=== PATIENT | female | born 1990 | race Hispanic/Latino ===

== ENCOUNTER 2018-01-15 22:25 | Emergency (ER) | payer SELFPAY ==
[2018-01-15 23:05] LABS: Urine Blood 2+ (NEG); Urine Glucose NEGATIVE (NEG); Urine Protein NEGATIVE (NEG)
[2018-01-15 23:39] LABS: Absolute Lymphocytes (CBC) 2.6 K/uL (0.7-4.9); Absolute Monocytes 0.6 K/uL (0.1-1.3); Absolute Neutrophil 7.2 K/uL (1.8-8.0); Basophils % 0.3 % (0-1.3); Eosinophils % 3.8 % (0-4.4); Hematocrit 39.9 % (36.0-45.0); Lymphocytes % 24.1 % (15.3-44.8); MCH 30.4 pg (27.0-35.0); MCV 86.2 fL (80-100); MPV 7.7 fL (7.6-11.3); Monocytes % 5.2 % (3.3-12.3); RBC Red Blood Cell Count 4.63 M/uL (3.86-4.86)
[2018-01-15 23:56] LABS: BUN Blood Urea Nitrogen 13 mg/dL (7-18); Bicarbonate 21 mmol/L (21-32); Glucose Level 113 mg/dL (74-106); Potassium 3.3 mmol/L (3.5-5.1); Sodium Level 143 mmol/L (136-145)
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
[2018-01-16] MEDS ORDERED: POTASSIUM 25 MEQ EFFERV TAB ONE (02:12)
[2018-01-16] MEDS ORDERED: CALCIUM CARBONATE CHEW 500MG TAB ONE (02:20)
[2018-01-16 02:42] VITALS: TEMP 98.5
[2018-01-16 02:45] VITALS: BP 119/78; O2SAT 100
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
== END 2018-01-16 02:35 | disposition home or self-care (01) ==
LOC: MERGE 22:25 → ER 22:25
DX: S01.111A Laceration without foreign body of right eyelid and periocular area, initial encounter (principal); F10.129 Alcohol abuse with intoxication, unspecified
CPT/HCPCS: 36415; 70450; 71250; 72125; 80048; 80320; 81003; 81025; 85025; 86850; 86900; 86901; 99284

== ENCOUNTER 2018-07-29 20:38 | Emergency (ER) | payer SELFPAY ==
--- NOTE | 2018-07-29 22:31 | RAD REPORT ---
EXAM DESCRIPTION: US[facility] [employer] Ltd07/29/2018 10:22 pm CLINICAL HISTORY: left leg pain and swelling. COMPARISON: None. FINDINGS: Left common femoral, superficial femoral, popliteal and posterior tibial veins are compre ssible and demonstrate augmentation. Doppler demonstrates good flow. IMPRESSION: No evidence of deep venous thrombosis involving the left lower extremity.
[2018-07-29 22:38] LABS: Absolute Lymphocytes (CBC) 3.3 K/uL (0.7-4.9); Absolute Neutrophil 6.6 K/uL (1.8-8.0); Basophils % 0.3 % (0-1.3); Eosinophils % 2.4 % (0-4.4); Hematocrit 41.2 % (36.0-45.0); Lymphocytes % 29.2 % (15.3-44.8); MPV 7.8 fL (7.6-11.3); Monocytes % 8.8 % (3.3-12.3); RBC Red Blood Cell Count 4.85 M/uL (3.86-4.86)
[2018-07-29 22:55] LABS: ALT/SGPT 45 U/L (12-78); AST/SGOT 24 U/L (15-37); Alkaline Phosphatase 74 U/L (45-117); BUN Blood Urea Nitrogen 14 mg/dL (7-18); Bicarbonate 27 mmol/L (21-32); Bilirubin Total 0.5 mg/dL (0.2-1.0); Glucose Level 89 mg/dL (74-106); Potassium 3.6 mmol/L (3.5-5.1); Protein, Total 7.7 g/dL (6.4-8.2); Sodium Level 141 mmol/L (136-145)
[2018-07-29] MEDS ORDERED: CLINDAMYCIN 600MG/D5W 600 MG/50 ML BAG IV ONE (23:33)
[2018-07-29 23:38] LABS: Urine Blood TRACE (NEG); Urine Glucose NEGATIVE (NEG); Urine Protein 1+ (NEG); Urine Specific Gravity 1.025 (1.005-1.030)
--- NOTE | 2018-07-29 23:39 | EDPHYS ---
Physician Documentation [facility] Name: Siria Godinez Age: 27 yrs Sex: Female : 1990 Arrival Date: 07/29/2018 Time: 20:39 Bed 20 Private MD: ED Physician Trace Stringer HPI: 07/29 21:18 This 27 yrs old Female presents to ER via Ambulatory with complaints of Insect jmm Bite. 21:18 The patient presents with pain, that is acute, swelling. The complaints affect the jmm lateral aspect of left calf, left calf, medial aspect of left calf and left zayas. Onset: The symptoms/episode began/occurred gradually, today. This is a 27 year old female with no chronic medical conditions that presents to the ED with complaints of left lower leg swelling beginning earlier today today after going fishing. Patient was walking in salt water. Patient complaints of chills. Denies known injury. . 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 - Social history:: Smoking status: Patient uses tobacco products, denies chronic smoking, but will smoke occasionally. - Ebola Screening: : Patient negative for fever greater than or equal to 101.5 degrees Fahrenheit, and additional compatible Ebola Virus Disease symptoms Patient denies exposure to infectious person Patient denies travel to an Ebola-affected area in the 21 days before illness onset No symptoms or risks identified at this time. ROS: 21:18 Constitutional: Positive for body aches, chills. jmm 21:18 MS/extremity: Positive for erythema, swelling. 21:18 Skin: Positive for erythema, swelling. 21:18 All other systems are negative. Exam: 21:18 Constitutional: This is a well developed, well nourished patient who is awake, alert, jmm and in no acute distress. Head/Face: atraumatic. Eyes: EOMI, no conjunctival erythema appreciated ENT: Moist Mucus Membranes Neck: Trachea midline, Supple Chest/axilla: Normal chest wall appearance and motion. Cardiovascular: Regular rate and rhythm. No edema appreciated Respiratory: Normal respirations, no respiratory distress appreciated Abdomen/GI: Non distended, soft Back: Normal ROM 21:18 Skin: erythema noted to the left lower leg. 21:18 Neuro: Orientation: is normal, Mentation: is normal, Memory: is normal. 21:18 Psych: Behavior/mood is pleasant, cooperative. Vital Signs: 20:52 BP 139 / 97; Pulse 112; Resp 20; Temp 99.6(O); Pulse Ox 99% on R/A; Weight 85.28 kg; ed1 Height 5 ft. 0 in. (152.40 cm); Pain 4/10; 23:35 BP 122 / 66; Pulse 95; Resp 18; Temp 98.1; Pulse Ox 100% on R/A; wh 20:52 Body Mass Index 36.72 (85.28 kg, 152.40 cm) ed1 MDM: 21:14 Patient medically screened. [facility] 22:12 Data reviewed: vital signs, nurses notes. Counseling: I had a detailed discussion with mary the patient and/or guardian regarding: the historical points, exam findings, and any diagnostic results supporting the discharge/admit diagnosis. 07/29 21:16 Order name: CBC with Diff; Complete Time: 23:04 [facility] 07/29 21:16 Order name: CMP; Complete Time: 23:04 [facility] 07/29 21:16 Order name: Blood Culture Adult (2) [facility] 07/29 21:16 Order name: Procalcitonin; Complete Time: 23:38 [facility] 07/29 21:16 Order name: Lactate; Complete Time: 23:04 [facility] 07/29 23:18 Order name: Urine Microscopic Only; Complete Time: 23:48 [facility] 07/29 21:16 Order name: US Extremity Venous Unilateral Ltd; Complete Time: 22:34 [facility] 07/29 23:33 Order name: Urine Dipstick--Ancillary (enter results); Complete Time: 23:39 [facility] 07/29 23:33 Order name: Urine --Ancillary (enter results); Complete Time: 23:39 [facility] 07/29 23:48 Order name: Urine Culture; Complete Time: 07:52 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 Exp: 05/25/2020. Lot #: [id number]. } Route: IM; Site: right deltoid; 07/30 00:08 Follow up: Response: No adverse reaction 07/29 23:59 Drug: [place] 5 mg-325 mg 1 tabs Route: PO; 07/30 00:08 Follow up: Response: No adverse reaction Disposition: 01:57 Co-signature as Attending Physician, Trace Stringer MD. rn Disposition: 07/29/18 23:38 Discharged to Home. Impression: Cellulitis of right lower limb. - Condition is Stable. - Discharge Instructions: Cellulitis, Adult, Urinary Tract Infection, Adult. - Prescriptions for Clindamycin HCl 300 mg Oral Capsule - take 1 capsule by ORAL route every 6 hours for 10 days; 40 capsule. Bactrim DS 800- 160 mg Oral Tablet - take 1 tablet by ORAL route every 12 hours for 10 days; 20 tablet. Tylenol- Codeine #3 300-30 mg Oral Tablet - take 2 tablets by ORAL route every 6 hours As needed; 20 tablet. - Medication Reconciliation Form, Thank You Letter, Antibiotic Education, Prescription Opioid Use form. - Follow up: Emergency Department; When: As needed; Reason: Worsening of condition. Follow up: Private Physician; When: 2 - 3 days; Reason: Recheck today's complaints, Continuance of care, Re-evaluation by your physician. - Problem is new. - Symptoms have improved. Signatures: Dispatcher [employer] EDMS Lizzy Grace, FREDERICKC HARSH-James Kong PA PA jmm Nieto, Roman, MD MD rn Riggs, Erika, RN RN ed1 Thor Pettit NP FOOD AND BEVERAGE ORDER CLERK pm1 Nemo Mclain Corrections: (The following items were deleted from the chart) 00:10 07/29 23:38 07/29/2018 23:38 Discharged to Home. Impression: Cellulitis of right lower wh limb. Condition is Stable. Forms are Medication Reconciliation Form, Thank You Letter, Antibiotic Education, Prescription Opioid Use. Follow up: Emergency Department; When: As needed; Reason: Worsening of condition. Follow up: Private Physician; When: 2 - 3 days; Reason: Recheck today's complaints, Continuance of care, Re-evaluation by your physician. Problem is new. Symptoms have improved. pm1
--- NOTE | 2018-07-29 23:39 | ER ---
Nurse's Notes [facility] Name: Siria Godinez Age: 27 yrs Sex: Female : 1990 Arrival Date: 07/29/2018 Time: 20:39 Bed 20 Private MD: Diagnosis: Cellulitis of right lower limb Presentation: 07/29 20:50 Presenting complaint: Patient states: This morning I went fishing with my and I ed1 think I got bit by something and now my leg is swelling. I can't keep anything down and I have been having diarrhea. Transition of care: patient was not received from another setting of care. Onset of symptoms was July 29, 2018. Risk Assessment: Do you want to hurt yourself or someone else? Patient reports no desire to harm self or others. Initial Sepsis Screen: Does the patient meet any 2 criteria? No. Patient's initial sepsis screen is negative. Does the patient have a suspected source of infection? No. Patient's initial sepsis screen is negative. Care prior to arrival: Medication(s) given: Benadryl. 20:50 Method Of Arrival: Ambulatory ed1 20:50 Acuity: VICENTA 3 ed1 Triage Assessment: 20:52 Bite description: bite sustained to left leg by an unknown animal, animal information: ed1 vaccination(s) is unknown. General: Appears uncomfortable, Behavior is calm, cooperative. Pain: Complains of pain in left leg Pain currently is 4 out of 10 on a pain scale. at worst was 9 out of 10 on a pain scale. Quality of pain is described as throbbing. 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 - Social history:: Smoking status: Patient uses tobacco products, denies chronic smoking, but will smoke occasionally. - Ebola Screening: : Patient negative for fever greater than or equal to 101.5 degrees Fahrenheit, and additional compatible Ebola Virus Disease symptoms Patient denies exposure to infectious person Patient denies travel to an Ebola-affected area in the 21 days before illness onset No symptoms or risks identified at this time. Screenin:30 Abuse screen: Denies threats or abuse. Denies injuries from another. Nutritional aj1 screening: No deficits noted. Tuberculosis screening: No symptoms or risk factors identified. 07/30 00:09 Fall Risk None identified. Assessment: 07/29 21:30 General: Appears in no apparent distress. uncomfortable, Behavior is calm, cooperative, aj1 appropriate for age. Pain: Complains of pain in left leg. Neuro: Level of Consciousness is awake, alert, obeys commands, Oriented to person, place, time, situation. Cardiovascular: Patient's skin is warm and dry. Respiratory: Airway is patent Respiratory effort is even, unlabored, Respiratory pattern is regular, symmetrical. GI: Reports diarrhea. : No signs and/or symptoms were reported regarding the genitourinary system. EENT: No signs and/or symptoms were reported regarding the EENT system. Derm: Skin is intact, Skin is redness and swelling noted to left leg. Musculoskeletal: Circulation, motion, and sensation intact. 22:00 Reassessment: Ultrasound at bedside. aj1 22:40 Reassessment: Patient appears in no apparent distress at this time. No changes from aj1 previously documented assessment. Patient and/or family updated on plan of care and expected duration. Pain level reassessed. Patient is alert, oriented x 3, equal unlabored respirations, skin warm/dry/pink. 23:35 Reassessment: Patient appears in no apparent distress at this time. No changes from previously documented assessment. Patient and/or family updated on plan of care and expected duration. Pain level reassessed. Patient is alert, oriented x 3, equal unlabored respirations, skin warm/dry/pink. Vital Signs: 20:52 BP 139 / 97; Pulse 112; Resp 20; Temp 99.6(O); Pulse Ox 99% on R/A; Weight 85.28 kg; ed1 Height 5 ft. 0 in. (152.40 cm); Pain 4/10; 23:35 BP 122 / 66; Pulse 95; Resp 18; Temp 98.1; Pulse Ox 100% on R/A; wh 20:52 Body Mass Index 36.72 (85.28 kg, 152.40 cm) ed1 ED Course: 20:39 Patient arrived in ED. as 20:52 Triage completed. ed1 20:52 Arm band placed on left wrist. ed1 21:10 James Love PA is PHCP. jmm 21:10 Trace Stringer MD is Attending Physician. jmm 21:30 Patient has correct armband on for positive identification. Bed in low position. Call aj1 light in reach. Side rails up X 1. 21:30 No provider procedures requiring assistance completed. aj1 21:54 Monica Badillo, NAN is Primary Nurse. aj1 22:10 Ultrasound completed. Patient tolerated well. Notified ED Physician ed physician. sg3 22:13 PHCP role handed off by James Love PA pm1 22:13 Thor Pettit NP is PHCP. pm1 22:22 US Extremity Venous Unilateral Ltd In Process Unspecified. EDMS 22:27 Inserted saline lock: 22 gauge in right antecubital area, using aseptic technique. aj1 Blood collected. 22:27 Initial lab(s) drawn, by me, sent to lab. First set of blood cultures drawn by me. aj1 22:45 Report given to NAN [place]. [facility] 07/30 00:09 IV discontinued, intact, bleeding controlled, No redness/swelling at site. 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 Exp: 05/25/2020. Lot #: [id number]. } Route: IM; Site: right deltoid; 07/30 00:08 Follow up: Response: No adverse reaction 07/29 23:59 Drug: [place] 5 mg-325 mg 1 tabs Route: PO; 07/30 00:08 Follow up: Response: No adverse reaction Outcome: 07/29 23:38 Discharge ordered by . pm1 07/30 00:08 Discharged to home ambulatory, with family. Condition: good Discharge instructions given to patient, Instructed on discharge instructions, follow up and referral plans. no drinking with medication, no driving heavy equipment, medication usage, POC Cellulitis, UTI Demonstrated understanding of instructions, follow-up care, medications, POC Prescriptions given X 3. 00:10 Patient left the ED. Addendum: 08/01/2018 08:11 Addendum: Culture Results: Positive urine culture. No further action required. Bacteria a a5 sensitive to prescribed antibiotic. Signatures: Dispatcher [employer] EDMS Monica Badillo, RN RN aj1 James Love PA PA jmm Martinez, Amelia as Calderon, Audri, RN RN aa5 Danna Choi RN RN ed1 Thor Pettit, CHARLIE POOL CLEANER pm1 Nemo Mclain Beatriz Dodd sg3
[2018-07-29 23:46] LABS: Urine Bacteria >50 /HPF (<20); Urine Culture Reflex Order REFLEXED; Urine Mucus MOD /HPF (NONE SEEN); Urine RBC <5 /HPF (NONE SEEN)
[2018-07-30] MEDS ORDERED: HYDROCODONE/APAP 5/325 MG TAB ONE (00:06)
[2018-07-30] MEDS ORDERED: TETANUS & DIPHTHERIA TOX,ADULT 0.5 ML VIAL ONE (00:07)
[2018-07-30] MEDS ORDERED: SMZ./TMP. 800/160 MG TABLET ONE (00:07)
[2018-07-30 01:29] VITALS: BP 122/66; TEMP 98.1; O2SAT 100
== END 2018-07-30 00:10 | disposition home or self-care (01) ==
LOC: ER 20:38
DX: L03.116 Cellulitis of left lower limb (principal); Z88.8 Allergy status to other drugs, medicaments and biological substances
CPT/HCPCS: 36415; 80053; 81003; 81015; 81025; 83605; 84145; 85025; 87040; 87077; 87086; 87088; 87186; 90471; 93971; 96365; 99284

== ENCOUNTER 2018-10-09 06:02 | Emergency (ER) | payer OTHER, SELFPAY ==
--- OUTSIDE RECORDS SUMMARY | 2018-10-09 06:05 | XMS REPORT ---
:1990 [facility] [address] [place] [address] Dr. De La Cruz. [address] [place] [id number] Care Team Providers Name Role Phone Unavailable Unavailable Unavailable Problems This patient has no known problems. Allergies, Adverse Reactions, Alerts This patient has no known allergies or adverse reactions. Medications This patient has no known medications.
--- NOTE | 2018-10-09 06:14 | ER ---
Nurse's Notes [facility] Name: Siria Godinez Age: 28 yrs Sex: Female : 1990 Arrival Date: 10/09/2018 Time: 06:04 Bed 5 Private MD: Diagnosis: Acute contact otitis externa Presentation: 10/09 06:11 Presenting complaint: Patient states: "I have a really bad ear infection in my right jd3 ear. I normally take over the counter ear drops and Tylenol and it goes away. this time it has gotten worse and it has been about 4 days.". Transition of care: patient was not received from another setting of care. Onset of symptoms was October 09, 2018. Risk Assessment: Do you want to hurt yourself or someone else? Patient reports no desire to harm self or others. Initial Sepsis Screen: Does the patient meet any 2 criteria? No. Patient's initial sepsis screen is negative. Does the patient have a suspected source of infection? No. Patient's initial sepsis screen is negative. Care prior to arrival: None. 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 - Social history:: Smoking status: Patient/guardian denies using tobacco. - Ebola Screening: : Patient negative for fever greater than or equal to 101.5 degrees Fahrenheit, and additional compatible Ebola Virus Disease symptoms. Screenin:17 Abuse screen: Denies threats or abuse. Nutritional screening: No deficits noted. jd3 Tuberculosis screening: No symptoms or risk factors identified. Fall Risk Ambulatory Aid- None/Bed Rest/Nurse Assist (0 pts). Gait- Normal/Bed Rest/Wheelchair (0 pts) Mental Status- Oriented to own ability (0 pts). Total Lara Fall Scale indicates No Risk (0-24 pts). Assessment: 06:16 General: Appears in no apparent distress. uncomfortable, Behavior is calm, cooperative, jd3 appropriate for age. Pain: Complains of pain in right ear Quality of pain is described as aching, pressure. Neuro: Level of Consciousness is awake, alert, obeys commands, Oriented to person, place, time, situation. Cardiovascular: Capillary refill < 3 seconds Patient's skin is warm and dry. Respiratory: Airway is patent Respiratory effort is even, unlabored, Respiratory pattern is regular, symmetrical, Denies cough, shortness of breath. GI: No signs and/or symptoms were reported involving the gastrointestinal system. : No signs and/or symptoms were reported regarding the genitourinary system. EENT: Reports pain in right ear Denies decreased hearing nasal congestion. Derm: Skin is intact, Skin is dry, Skin is normal, Skin temperature is warm. Musculoskeletal: Circulation, motion, and sensation intact. Range of motion: intact in all extremities. 06:22 Reassessment: Patient appears in no apparent distress at this time. Patient and/or jd3 family updated on plan of care and expected duration. Pain level reassessed. Patient is alert, oriented x 3, equal unlabored respirations, skin warm/dry/pink. pt reported understanding of discharge instructions. even and steady gait upon discharge. Vital Signs: 06:15 BP 123 / 54; Pulse 81; Resp 15 S; Temp 98.2(O); Pulse Ox 99% on R/A; Weight 89.36 kg jd3 (R); Height 5 ft. 2 in. (157.48 cm) (R); Pain 8/10; 06:15 Body Mass Index 36.03 (89.36 kg, 157.48 cm) jd3 ED Course: 06:04 Patient arrived in ED. ds1 06:05 Patrick Vila, NAN is Primary Nurse. jd3 06:06 Rafael Peters PA is PHCP. jr8 06:06 Sergio Rivas MD is Attending Physician. jr8 06:14 Triage completed. jd3 06:16 Arm band placed on. jd3 06:18 Patient has correct armband on for positive identification. Bed in low position. Call jd3 light in reach. Side rails up X 1. 06:21 No provider procedures requiring assistance completed. Patient did not have IV access jd3 during this emergency room visit. Administered Medications: No medications were administered Outcome: 06:13 Discharge ordered by . luciano :22 Discharged to home ambulatory. jd3 06: Condition: stable 06:22 Discharge instructions given to patient, Instructed on discharge instructions, follow up and referral plans. medication usage, Demonstrated understanding of instructions, follow-up care, medications, Prescriptions given X 1. :23 Patient left the ED. jd3 Signatures: Casie Alfaro ds1 Rafael Peters PA PA jr8 Patrick Vila RN RN jd3
--- NOTE | 2018-10-09 06:15 | EDPHYS ---
Physician Documentation [facility] Name: Siria Godinez Age: 28 yrs Sex: Female : 1990 Arrival Date: 10/09/2018 Time: 06:04 Bed 5 Private MD: ED Physician Sergio Rivas HPI: 10/09 06:31 This 28 yrs old Female presents to ER via Ambulatory with complaints of Ear jr8 Pain - <8 Wks Preg. 06:31 The patient presents with pain, swelling, tenderness. The complaints affect the right jr8 ear. Onset: The symptoms/episode began/occurred acutely, 4 day(s) ago, and became worse. Modifying factors: The symptoms are alleviated by nothing, the symptoms are aggravated by touching. Associated signs and symptoms: The patient has no apparent associated signs or symptoms. Severity of symptoms: At their worst the symptoms were moderate in the emergency department the symptoms are unchanged. The patient has not experienced similar symptoms in the past. The patient has been recently seen by a physician: the patient's primary care provider, with different complaint(s), was given a prescription for antibiotics. Recently seen for UTI. Stated that she now is having ear pain that will not decrease . 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 - Social history:: Smoking status: Patient/guardian denies using tobacco. - Ebola Screening: : Patient negative for fever greater than or equal to 101.5 degrees Fahrenheit, and additional compatible Ebola Virus Disease symptoms. ROS: 06:31 Eyes: Negative for injury, pain, redness, and discharge, Neck: Negative for injury, jr8 pain, and swelling, Cardiovascular: Negative for chest pain, palpitations, and edema, Respiratory: Negative for shortness of breath, cough, wheezing, and pleuritic chest pain, Abdomen/GI: Negative for abdominal pain, nausea, vomiting, diarrhea, and constipation, Back: Negative for injury and pain, MS/Extremity: Negative for injury and deformity, Skin: Negative for injury, rash, and discoloration, Neuro: Negative for headache, weakness, numbness, tingling, and seizure. 06:31 ENT: Positive for ear pain, Negative for drainage from ear(s), tinnitus, nasal discharge, rhinorrhea, sinus congestion, sinus pain, sore throat, difficulty swallowing, difficulty handling secretions, hoarseness. Exam: 06:31 Eyes: Pupils equal round and reactive to light, extra-ocular motions intact. Lids and jr8 lashes normal. Conjunctiva and sclera are non-icteric and not injected. Cornea within normal limits. Periorbital areas with no swelling, redness, or edema. Neck: Trachea midline, no thyromegaly or masses palpated, and no cervical lymphadenopathy. Supple, full range of motion without nuchal rigidity, or vertebral point tenderness. No Meningismus. Cardiovascular: Regular rate and rhythm with a normal S1 and S2. No gallops, murmurs, or rubs. Normal PMI, no JVD. No pulse deficits. Respiratory: Lungs have equal breath sounds bilaterally, clear to auscultation and percussion. No rales, rhonchi or wheezes noted. No increased work of breathing, no retractions or nasal flaring. Abdomen/GI: Soft, non-tender, with normal bowel sounds. No distension or tympany. No guarding or rebound. No evidence of tenderness throughout. Back: No spinal tenderness. No costovertebral tenderness. Full range of motion. Skin: Warm, dry with normal turgor. Normal color with no rashes, no lesions, and no evidence of cellulitis. MS/ Extremity: Pulses equal, no cyanosis. Neurovascular intact. Full, normal range of motion. Neuro: Awake and alert, GCS 15, oriented to person, place, time, and situation. Cranial nerves II-XII grossly intact. Motor strength 5/5 in all extremities. Sensory grossly intact. Cerebellar exam normal. Normal gait. 06:31 ENT: Exam is negative for nasal discharge, sinus tenderness, enlarged tonsils, pharyngitis, dental infection, exudate, abnormal voice, External ear(s): are unremarkable, Ear canal(s): swelling, that is moderate, of the right canal, TM's: are normal, no evidence of bulging, no dullness, no erythema, no fluid levels, no hemotympanum, no rupture, normal bony landmarks, normal mobility, Mouth: Lips: moist, Oral mucosa: pink and intact, moist, Gums: pink, Tongue: is moist, Posterior pharynx: Airway: patent, erythema, is not appreciated. Vital Signs: 06:15 BP 123 / 54; Pulse 81; Resp 15 S; Temp 98.2(O); Pulse Ox 99% on R/A; Weight 89.36 kg jd3 (R); Height 5 ft. 2 in. (157.48 cm) (R); Pain 8/10; 06:15 Body Mass Index 36.03 (89.36 kg, 157.48 cm) jd3 MDM: 06:13 Patient medically screened. jr8 06:31 Data reviewed: vital signs, nurses notes, and as a result, I will discharge patient. jr8 Data interpreted: Pulse oximetry: on room air is 99 %. Interpretation: normal. Counseling: I had a detailed discussion with the patient and/or guardian regarding: the historical points, exam findings, and any diagnostic results supporting the discharge/admit diagnosis, the need for outpatient follow up, a family practitioner, to return to the emergency department if symptoms worsen or persist or if there are any questions or concerns that arise at home. Administered Medications: No medications were administered Disposition: 19:01 Co-signature as Attending Physician, Sergio Rivas MD I agree with the assessment and ps1 plan of care. Available for consultation at all times . Disposition: 10/09/18 06:13 Discharged to Home. Impression: Acute contact otitis externa. - Condition is Stable. - Discharge Instructions: Otitis Externa. - Prescriptions for Ciprodex 0.3- 0.1 % Otic Drops, Suspension - instill 4 drop by OTIC route every 12 hours for 7 days , for ears ONLY; 1 Container. - Medication Reconciliation Form, Thank You Letter, Antibiotic Education, Prescription Opioid Use form. - Follow up: Private Physician; When: 1 week; Reason: Recheck today's complaints, Continuance of care, Re-evaluation by your physician. - Problem is new. - Symptoms have improved. Signatures: Rafael Peters PA PA jr8 Patrick Vila RN RN jd3 Singer, Phillip, MD MD ps1 Corrections: (The following items were deleted from the chart) 06:23 06:13 10/09/2018 06:13 Discharged to Home. Impression: Acute contact otitis externa. jd3 Condition is Stable. Forms are Medication Reconciliation Form, Thank You Letter, Antibiotic Education, Prescription Opioid Use. Follow up: Private Physician; When: 1 week; Reason: Recheck today's complaints, Continuance of care, Re-evaluation by your physician. Problem is new. Symptoms have improved. jr8
[2018-10-09 06:38] VITALS: BP 123/54; TEMP 98.2; O2SAT 99
== END 2018-10-09 06:23 | disposition home or self-care (01) ==
LOC: ER 06:02
DX: O26.891 Other specified pregnancy related conditions, first trimester (principal); H60.531 Acute contact otitis externa, right ear; Z3A.08 8 weeks gestation of pregnancy; Z88.8 Allergy status to other drugs, medicaments and biological substances
CPT/HCPCS: 99282

== ENCOUNTER 2018-10-10 12:19 | Emergency (ER) | payer OTHER ==
--- OUTSIDE RECORDS SUMMARY | 2018-10-10 12:21 | XMS REPORT ---
:1990 [facility] Address [address] [place] [address] Dr. De La Cruz. [address] [place] [id number] Care Team Providers Name Role Phone Unavailable Unavailable Unavailable Problems This patient has no known problems. Allergies, Adverse Reactions, Alerts This patient has no known allergies or adverse reactions. Medications This patient has no known medications.
[2018-10-10] MEDS ORDERED: MEPERIDINE HCL 50 MG/ML AMP ONE (14:06)
[2018-10-10] MEDS ORDERED: PROMETHAZINE 25 MG TABLET ONE (14:06)
--- NOTE | 2018-10-10 14:53 | EDPHYS ---
Physician Documentation [facility] Name: Siria Godinez Age: 28 yrs Sex: Female : 1990 Arrival Date: 10/10/2018 Time: 12:21 Bed 11 Private MD: ED Physician Miguelito Smith HPI: 10/10 14:52 This 28 yrs old Female presents to ER via Ambulatory with complaints of Ear jr8 Pain. 14:52 The patient presents with pain, swelling, tenderness. The complaints affect the right jr8 ear. Onset: The symptoms/episode began/occurred acutely, 2 day(s) ago. Modifying factors: The symptoms are alleviated by nothing, the symptoms are aggravated by touching. Associated signs and symptoms: The patient has no apparent associated signs or symptoms. Severity of symptoms: At their worst the symptoms were moderate in the emergency department the symptoms are unchanged. The patient has not experienced similar symptoms in the past. The patient has not recently seen a physician. Patient seen in ED yesterday and diagnosed with acute otitis externa. Came back today with worsening of pain and increased swelling. Stated that the ear drops are not going in because of the swelling . [employer]: 12:27 LMP 08/31/2018 hj Historical: - Allergies: 12:26 Zofran (Hives); hj - PMHx: 12:26 None; hj - PSHx: 12:26 Appendectomy; Cholecystectomy; hj - Immunization history:: Adult Immunizations up to date. - Social history:: Smoking status: Patient/guardian denies using tobacco. - Ebola Screening: : Patient negative for fever greater than or equal to 101.5 degrees Fahrenheit, and additional compatible Ebola Virus Disease symptoms Patient denies exposure to infectious person Patient denies travel to an Ebola-affected area in the 21 days before illness onset No symptoms or risks identified at this time. ROS: 14:52 Eyes: Negative for injury, pain, redness, and discharge, Neck: Negative for injury, jr8 pain, and swelling, Cardiovascular: Negative for chest pain, palpitations, and edema, Respiratory: Negative for shortness of breath, cough, wheezing, and pleuritic chest pain, Abdomen/GI: Negative for abdominal pain, nausea, vomiting, diarrhea, and constipation, Back: Negative for injury and pain, MS/Extremity: Negative for injury and deformity, Skin: Negative for injury, rash, and discoloration, Neuro: Negative for headache, weakness, numbness, tingling, and seizure. 14:52 ENT: Positive for ear pain. Exam: 14:52 Eyes: Pupils equal round and reactive to light, extra-ocular motions intact. Lids and jr8 lashes normal. Conjunctiva and sclera are non-icteric and not injected. Cornea within normal limits. Periorbital areas with no swelling, redness, or edema. Neck: Trachea midline, no thyromegaly or masses palpated, and no cervical lymphadenopathy. Supple, full range of motion without nuchal rigidity, or vertebral point tenderness. No Meningismus. Cardiovascular: Regular rate and rhythm with a normal S1 and S2. No gallops, murmurs, or rubs. Normal PMI, no JVD. No pulse deficits. Respiratory: Lungs have equal breath sounds bilaterally, clear to auscultation and percussion. No rales, rhonchi or wheezes noted. No increased work of breathing, no retractions or nasal flaring. Abdomen/GI: Soft, non-tender, with normal bowel sounds. No distension or tympany. No guarding or rebound. No evidence of tenderness throughout. Back: No spinal tenderness. No costovertebral tenderness. Full range of motion. Skin: Warm, dry with normal turgor. Normal color with no rashes, no lesions, and no evidence of cellulitis. MS/ Extremity: Pulses equal, no cyanosis. Neurovascular intact. Full, normal range of motion. Neuro: Awake and alert, GCS 15, oriented to person, place, time, and situation. Cranial nerves II-XII grossly intact. Motor strength 5/5 in all extremities. Sensory grossly intact. Cerebellar exam normal. Normal gait. 14:52 ENT: Exam is negative for nasal discharge, sinus tenderness, enlarged tonsils, pharyngitis, dental infection, exudate, External ear(s): are unremarkable, no abrasion, no avulsion, no erythema, no laceration, no puncture, no cellulitis, no abscess, no contusion, no pain with movement, Ear canal(s): swelling, that is moderate, of the right canal, TM's: not visable, swelling . Vital Signs: 12:26 BP 123 / 61; Pulse 93; Resp 18; Temp 100.4(TE); Pulse Ox 98% on R/A; Weight 89.36 kg; hj Height 5 ft. 2 in. (157.48 cm); Pain 10/10; 13:36 BP 125 / 65; Pulse 90; Resp 17 S; Temp 99.3(O); Pulse Ox 97% on R/A; Pain 10/10; ca1 14:40 BP 121 / 64; Pulse 87; Resp 17 S; Temp 99.1(O); Pulse Ox 98% on R/A; ca1 12:26 Body Mass Index 36.03 (89.36 kg, 157.48 cm) hj MDM: 13:38 Patient medically screened. jr8 14:52 Data reviewed: vital signs, nurses notes, and as a result, I will discharge patient. jr8 Data interpreted: Pulse oximetry: on room air is 97 %. Interpretation: normal. Counseling: I had a detailed discussion with the patient and/or guardian regarding: the historical points, exam findings, and any diagnostic results supporting the discharge/admit diagnosis, the need for outpatient follow up, an ENT specialist, to return to the emergency department if symptoms worsen or persist or if there are any questions or concerns that arise at home. 14:52 ED course: Ear wick placed in right canal. Drops placed as well. Pain decreased. Will jr8 put on oral antibiotic as well and patient knows to continue drops. If worse to come back but was referred to ENT . Administered Medications: 13:53 Drug: Promethazine 25 mg Route: PO; ca1 14:59 Follow up: Response: No adverse reaction; Nausea is decreased ca1 14:06 Drug: Demerol 50 mg Route: IM; Site: left deltoid; ca1 15:00 Follow up: Response: No adverse reaction; Pain is decreased ca1 Disposition: 15:26 Co-signature as Attending Physician, Miguelito Smith MD I agree with the assessment and brett plan of care. Disposition: 10/10/18 14:52 Discharged to Home. Impression: Acute contact otitis externa. - Condition is Stable. - Discharge Instructions: Otitis Externa. - Prescriptions for Augmentin 875- 125 mg Oral Tablet - take 1 tablet by ORAL route every 12 hours for 10 days; 20 tablet. - Medication Reconciliation Form, Thank You Letter, Antibiotic Education, Prescription Opioid Use form. - Follow up: Yamini Kingston MD; When: 2 - 3 days; Reason: Recheck today's complaints, Continuance of care, Re-evaluation by your physician. - Problem is new. - Symptoms have improved. Signatures: Miguelito Smith MD MD cha Roszak, Josh, PA PA jr8 Lopez Stout RN RN hj Kathryn Andrade RN RN ca1 Corrections: (The following items were deleted from the chart) 15:02 14:52 10/10/2018 14:52 Discharged to Home. Impression: Acute contact otitis externa. ca1 Condition is Stable. Forms are Medication Reconciliation Form, Thank You Letter, Antibiotic Education, Prescription Opioid Use. Follow up: Yamini Kingston; When: 2 - 3 days; Reason: Recheck today's complaints, Continuance of care, Re-evaluation by your physician. Problem is new. Symptoms have improved. jr8
--- NOTE | 2018-10-10 14:53 | ER ---
Nurse's Notes [facility] Name: Siria Godinez Age: 28 yrs Sex: Female : 1990 Arrival Date: 10/10/2018 Time: 12:21 Bed 11 Private MD: Diagnosis: Acute contact otitis externa Presentation: 10/10 12:24 Presenting complaint: Patient states: i have a really bad infection on on my r ear hj since and i came in here yesterday, and they Rx me with Ciprodex and now the R side of my mouth is hurting and i have headache; LMP- 08/30/18;. Transition of care: patient was not received from another setting of care. Onset of symptoms was October 10, 2018. Risk Assessment: Do you want to hurt yourself or someone else? Patient reports no desire to harm self or others. Initial Sepsis Screen: Does the patient meet any 2 criteria? No. Patient's initial sepsis screen is negative. Does the patient have a suspected source of infection? No. Patient's initial sepsis screen is negative. Care prior to arrival: None. 12:24 Method Of Arrival: Ambulatory 12:24 Acuity: VICENTA 4 hj [employer]: 12:27 LMP 08/31/2018 Historical: - Allergies: 12:26 Zofran (Hives); hj - PMHx: 12:26 None; hj - PSHx: 12:26 Appendectomy; Cholecystectomy; hj - Immunization history:: Adult Immunizations up to date. - Social history:: Smoking status: Patient/guardian denies using tobacco. - Ebola Screening: : Patient negative for fever greater than or equal to 101.5 degrees Fahrenheit, and additional compatible Ebola Virus Disease symptoms Patient denies exposure to infectious person Patient denies travel to an Ebola-affected area in the 21 days before illness onset No symptoms or risks identified at this time. Screenin:36 Abuse screen: Denies threats or abuse. Denies injuries from another. Nutritional ca1 screening: No deficits noted. On. Tuberculosis screening: No symptoms or risk factors identified. Fall Risk None identified. Assessment: 13:36 General: Appears in no apparent distress. comfortable, Behavior is calm, cooperative, ca1 appropriate for age. Pain: Complains of pain in face and right ear Pain radiates to right submandibular area and right sternocleidomastoid Pain currently is 10 out of 10 on a pain scale. Quality of pain is described as shooting, Pain began 2-3 days ago. Is continuous. Neuro: Level of Consciousness is awake, alert, obeys commands, Oriented to person, place, time, situation. EENT: Ear canal clear on left ear and right ear. Derm: Skin is intact, is healthy with good turgor, Skin is pink, warm \T\ dry. Musculoskeletal: Circulation, motion, and sensation intact. Capillary refill < 3 seconds, Range of motion: intact in all extremities. 14:40 Reassessment: Patient appears in no apparent distress at this time. Patient and/or ca1 family updated on plan of care and expected duration. Pain level reassessed. Patient is alert, oriented x 3, equal unlabored respirations, skin warm/dry/pink. Patient states feeling better. 14:55 Reassessment: Patient appears in no apparent distress at this time. Patient is alert, ca1 oriented x 3, equal unlabored respirations, skin warm/dry/pink. Significant other at bedside, will drive pt home as reported by pt. Vital Signs: 12:26 BP 123 / 61; Pulse 93; Resp 18; Temp 100.4(TE); Pulse Ox 98% on R/A; Weight 89.36 kg; hj Height 5 ft. 2 in. (157.48 cm); Pain 10/10; 13:36 BP 125 / 65; Pulse 90; Resp 17 S; Temp 99.3(O); Pulse Ox 97% on R/A; Pain 10/10; ca1 14:40 BP 121 / 64; Pulse 87; Resp 17 S; Temp 99.1(O); Pulse Ox 98% on R/A; ca1 12:26 Body Mass Index 36.03 (89.36 kg, 157.48 cm) ED Course: 12:21 Patient arrived in ED. as 12:25 Triage completed. hj 12:26 Arm band placed on right wrist. hj 13:23 Kathryn Andrade, RN is Primary Nurse. ca1 13:36 Patient has correct armband on for positive identification. Bed in low position. Call ca1 light in reach. Side rails up X 1. Pulse ox on. NIBP on. 13:36 No provider procedures requiring assistance completed. Patient did not have IV access ca1 during this emergency room visit. 13:38 [facility]. jr8 13:38 Miguelito Smith MD is Attending Physician. jr8 14:52 Yamini Kingston MD is Referral Physician. jr8 Administered Medications: 13:53 Drug: Promethazine 25 mg Route: PO; ca1 14:59 Follow up: Response: No adverse reaction; Nausea is decreased ca1 14:06 Drug: Demerol 50 mg Route: IM; Site: left deltoid; ca1 15:00 Follow up: Response: No adverse reaction; Pain is decreased ca1 Outcome: 14:52 Discharge ordered by . jr8 15:01 Discharged to home ambulatory, with significant other. ca1 15:01 Condition: stable 15:01 Discharge instructions given to patient, Instructed on discharge instructions, follow up and referral plans. medication usage, Demonstrated understanding of instructions, follow-up care, medications, Prescriptions given X 1. 15:02 Patient left the ED. ca1 Signatures: Julianna Marcano as Rafael Peters PA PA jr8 Lopez Stout RN RN Kathryn Andrade RN RN ca1 Corrections: (The following items were deleted from the chart) 12:27 12:24 Presenting complaint: Patient states: i have a really bad infection on on my r hj ear since and i came in here yesterday, and they Rx me with Ciprodex and now the R side of my mouth is hurting and i have headache; 12:27 12:26 Pulse 93bpm; Resp 18bpm; Pulse Ox 98% RA; Temp 100.4F Temporal; 89.36 kg; Height 5 ft. 2 in.; BMI: 36.0; Pain 10/10; hj
[2018-10-10 16:29] VITALS: BP 121/64; TEMP 99.1; O2SAT 98
== END 2018-10-10 15:02 | disposition home or self-care (01) ==
LOC: ER 12:19
DX: H60.531 Acute contact otitis externa, right ear (principal); Z88.8 Allergy status to other drugs, medicaments and biological substances
CPT/HCPCS: 96372; 99283; J2175

== ENCOUNTER 2021-01-13 16:03 | Emergency (ER) | payer OTHER ==
[2021-01-13 20:31] LABS: Urine Blood Negative (Negative); Urine Glucose Negative (Negative); Urine Protein Negative (Negative); Urine Specific Gravity >=1.030 (1.005-1.030); Urine pH 6.5 (5.0-7.0)
[2021-01-13 20:33] LABS: Urine Specific Gravity/Preg >1.030 (1.005-1.030)
[2021-01-13 20:38] LABS: Absolute Lymphocytes (CBC) 1.2 K/uL (0.7-4.9); Basophils % 0.5 % (0-1.3); Lymphocytes % 14.1 % (15.3-44.8); MPV 7.9 fL (7.6-11.3); RBC Red Blood Cell Count 4.82 M/uL (3.86-4.86)
[2021-01-13] MEDS ORDERED: DIPHENHYDRAMINE 50 MG/ML VIAL ONE (21:27)
[2021-01-13] MEDS ORDERED: METOCLOPRAMIDE 10 MG/2mL INJ ONE (21:27)
[2021-01-13] MEDS ORDERED: FAMOTIDINE 20 MG/2 ML VIAL IV ONE (21:28)
[2021-01-13] MEDS ORDERED: NA CHLORIDE 0.9% 1,000 ML ONE (21:34)
[2021-01-13 21:53] LABS: ALT/SGPT 26 U/L (12-78); AST/SGOT 12 U/L (15-37); Albumin 3.6 g/dL (3.4-5.0); Alkaline Phosphatase 87 U/L (45-117); BUN Blood Urea Nitrogen 14 mg/dL (7-18); Bicarbonate 24 mmol/L (21-32); Bilirubin Direct 0.1 mg/dL (0-0.2); Bilirubin Total 0.5 mg/dL (0.2-1.0); Glucose Level 88 mg/dL (74-106); Lipase 53 U/L (73-393); Potassium 3.5 mmol/L (3.5-5.1); Protein, Total 7.3 g/dL (6.4-8.2); Sodium Level 138 mmol/L (136-145)
--- NOTE | 2021-01-13 23:44 | EDPHYS ---
Physician Documentation [facility] Name: Siria Godinez Age: 30 yrs Sex: Female : 1990 Arrival Date: 01/13/2021 Time: 16:06 Bed 30 Private MD: Dara Reilly C ED Physician Jose Daniels HPI: 01/13 20:40 This 30 yrs old Female presents to ER via Ambulatory with complaints of mh7 Headache, Nausea/Vomiting/Diarrhea, chills. 20:40 The patient presents with abdominal pain in the lower abdomen. mh7 20:40 Onset: The symptoms/episode began/occurred last night. The symptoms radiate to both mh7 flanks. Associated signs and symptoms: Pertinent positives: nausea, vomiting, and diarrhea, headache, Pertinent negatives: anorexia, blood in stools, chest pain, constipation, dysuria, fever, hematuria, palpitations, shortness of breath, vaginal discharge, vomiting blood. The symptoms are described as intermittent, vague, waxing/waning. Modifying factors: The symptoms are alleviated by nothing, the symptoms are aggravated by food. Severity of pain: At its worst the pain was moderate today, in the emergency department the pain has improved moderately. 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 - Social history:: Smoking status: Patient reports the use of cigarette tobacco products, denies chronic smoking, but will smoke occasionally. ROS: 20:40 Constitutional: Negative for fever, chills, and weight loss, Eyes: Negative for injury, mh7 pain, redness, and discharge, ENT: Negative for injury, pain, and discharge, Neck: Negative for injury, pain, and swelling, Cardiovascular: Negative for chest pain, palpitations, and edema, Respiratory: Negative for shortness of breath, cough, wheezing, and pleuritic chest pain, : Negative for injury, bleeding, discharge, and swelling, MS/Extremity: Negative for injury and deformity, Skin: Negative for injury, rash, and discoloration. 20:40 Psych: Negative for depression, anxiety, suicide ideation, homicidal ideation, and hallucinations, Allergy/Immunology: Negative for hives, rash, and allergies, Endocrine: Negative for neck swelling, polydipsia, polyuria, polyphagia, and marked weight changes, Hematologic/Lymphatic: Negative for swollen nodes, abnormal bleeding, and unusual bruising. 20:40 Neuro: Negative for dizziness, gait disturbance, hearing loss, loss of consciousness, numbness, seizure activity, speech changes, syncope, near syncope, tingling, tinnitus, tremor, visual changes, weakness. Exam: 20:40 Constitutional: This is a well developed, well nourished patient who is awake, alert, mh7 and in no acute distress. Head/Face: Normocephalic, atraumatic. Eyes: Pupils equal round and reactive to light, extra-ocular motions intact. Lids and lashes normal. Conjunctiva and sclera are non-icteric and not injected. Cornea within normal limits. Periorbital areas with no swelling, redness, or edema. ENT: Nares patent. No nasal discharge, no septal abnormalities noted. Tympanic membranes are normal and external auditory canals are clear. Oropharynx with no redness, swelling, or masses, exudates, or evidence of obstruction, uvula midline. Mucous membranes moist. Neck: Trachea midline, no thyromegaly or masses palpated, and no cervical lymphadenopathy. Supple, full range of motion without nuchal rigidity, or vertebral point tenderness. No Meningismus. Chest/axilla: Normal chest wall appearance and motion. Nontender with no deformity. No lesions are appreciated. Cardiovascular: Regular rate and rhythm with a normal S1 and S2. No gallops, murmurs, or rubs. Normal PMI, no JVD. No pulse deficits. Respiratory: Lungs have equal breath sounds bilaterally, clear to auscultation and percussion. No rales, rhonchi or wheezes noted. No increased work of breathing, no retractions or nasal flaring. 20:40 Skin: Warm, dry with normal turgor. Normal color with no rashes, no lesions, and no evidence of cellulitis. MS/ Extremity: Pulses equal, no cyanosis. Neurovascular intact. Full, normal range of motion. Neuro: Awake and alert, GCS 15, oriented to person, place, time, and situation. Cranial nerves II-XII grossly intact. Motor strength 5/5 in all extremities. Sensory grossly intact. Cerebellar exam normal. Normal gait. Psych: Awake, alert, with orientation to person, place and time. Behavior, mood, and affect are within normal limits. 20:40 Abdomen/GI: Inspection: abdomen appears normal, obese Bowel sounds: normal, in all quadrants, Palpation: moderate abdominal tenderness, in the suprapubic area, right lower quadrant and left lower quadrant, mass, is not appreciated, rebound tenderness, is not appreciated, voluntary guarding, is not appreciated, involuntary guarding, is not appreciated, no appreciated organomegaly, Rectal exam: the exam is deferred, because of patient request, Indicators: McBurney's point is not tender, Elias's sign is negative, Rovsing's sign is negative, Obturator sign is negative, Psoas sign is negative, Liver: no appreciated palpable abnormalities, Hernia: not appreciated. 20:40 Back: normal spinal alignment noted, CVA tenderness, that is moderate, is noted on the left, muscle spasm, is not present. Vital Signs: 16:56 BP 125 / 73; Pulse 89; Resp 16; Temp 98.0; Pulse Ox 98% ; Weight 99.79 kg; Height 5 ft. vg1 2 in. (157.48 cm); Pain 4/10; 20:05 BP 110 / 53; Pulse 90; Resp 20; Temp 98.69; Pulse Ox 100% on R/A; cc4 21:00 BP 104 / 55; Pulse 84; Resp 18; Pulse Ox 100% on R/A; cc4 21:45 BP 93 / 68; Pulse 78; Resp 20; Pulse Ox 100% on R/A; cc4 22:15 BP 108 / 49; Pulse 85; Resp 20; Pulse Ox 100% on R/A; cc4 23:15 BP 109 / 60; Pulse 78; Resp 20; Pulse Ox 100% on R/A; cc4 01/14 00:06 BP 111 / 56; Pulse 78; Resp 18; Temp 98.7; Pulse Ox 100% on R/A; cc4 01/13 16:56 Body Mass Index 40.24 (99.79 kg, 157.48 cm) vg1 MDM: 01/13 23:41 Differential diagnosis: bowel obstruction, cholecystitis, Cholelithiasis, mh7 diverticulitis, Ectopic , gastroesophageal reflux disease, non-specific abd pain, pancreatitis, Pyelonephritis, Ureterolithiasis, urinary tract infection. Data reviewed: vital signs, nurses notes, lab test result(s), CBC, electrolytes, urinalysis, UPT: negative radiologic studies, CT scan, plain films. Data interpreted: Pulse oximetry: on room air is 100 %. Interpretation: normal. Counseling: I had a detailed discussion with the patient and/or guardian regarding: the historical points, exam findings, and any diagnostic results supporting the discharge/admit diagnosis, lab results, radiology results, the need for outpatient follow up, to return to the emergency department if symptoms worsen or persist or if there are any questions or concerns that arise at home. Response to treatment: the patient's symptoms have resolved after treatment, the patient's blood pressure is in an acceptable range, mental status has returned to baseline, the patient no longer shows bradycardia, the patient is not short of breath, the patient is not tachycardic, the patient's pain is gone, the patient's temperature has normalized. 23:43 Patient medically screened. [facility] 01/13 20:26 Order name: Basic Metabolic Panel; Complete Time: 22:44 em 01/13 20:26 Order name: CBC with Diff; Complete Time: 20:51 em 01/13 20:26 Order name: Hepatic Function; Complete Time: 22:44 em 01/13 20:26 Order name: Lipase; Complete Time: 22:44 em 01/13 20:31 Order name: Urine --Ancillary (enter results); Complete Time: 20:51 tt3 01/13 20:31 Order name: Urine Dipstick-Ancillary; Complete Time: 20:51 EDMS 01/13 20:51 Order name: Influenza Screen (a \T\ B); Complete Time: 22:44 [facility] 01/13 20:52 Order name: CT Abd/Pelvis - IV Contrast Only [facility] 01/13 20:52 Order name: CT Head Brain wo Cont [facility] 01/13 21:25 Order name: SARS-COV-2 RT PCR; Complete Time: 22:44 EDMS 01/13 20:26 Order name: IV Saline Lock; Complete Time: 20:32 em 01/13 20:26 Order name: Labs collected and sent; Complete Time: 20:32 em 01/13 20:26 Order name: Urine Dipstick-Ancillary (obtain specimen); Complete Time: 20:31 em 01/13 20:26 Order name: Urine Test (obtain specimen); Complete Time: 20:31 em Administered Medications: 21:07 Drug: Benadryl (diphenhydrAMINE) 50 mg Route: IVP; Site: right antecubital; mr2 01/14 00:06 Follow up: Response: No adverse reaction; Pain is decreased cc4 01/13 21:07 Drug: Pepcid (famotidine) 20 mg Route: IVP; Site: right antecubital; mr2 01/14 00:06 Follow up: Response: No adverse reaction; Nausea is decreased cc4 01/13 21:08 Drug: NS 0.9% 1000 ml Route: IV; Rate: 1000 ml; Site: right antecubital; mr2 01/14 00:06 Follow up: IV Intake: 1000ml cc4 01/13 21:08 Drug: Reglan (metoCLOPramide) 10 mg Route: IVP; Site: right antecubital; mr2 01/14 00:06 Follow up: Response: No adverse reaction; Nausea is decreased cc4 Disposition Summary: 01/13/21 23:43 Discharge Ordered Location: Home [facility] Problem: new [facility] Symptoms: have improved [facility] Condition: Stable [facility] Diagnosis - Abdominal pain, Generalized 7 - Gastroenteritis 7 - Headache 7 - Dehydration 7 - Calculus of kidney [facility] Followup: [facility] - With: Private Physician - When: 1 - 2 days - Reason: Worsening of condition, Recheck today's complaints, Continuance of care, Re-evaluation by your physician Discharge Instructions: - Discharge Summary Sheet 7 - Viral Gastroenteritis, Adult, [id number] 7 - Abdominal Pain, Adult, [id number] 7 - Dehydration, Adult, Vzoy-ae-Tlmo [facility] - General Headache Without Cause, Rxan-em-Xdto 7 - Kidney Stones, Vopd-so-Aada [facility] Forms: - Medication Reconciliation Form 7 - Thank You Letter [facility] - Antibiotic Education [facility] - Prescription Opioid Use [facility] Prescriptions: - Pepcid 20 mg Oral Tablet - take 1 tablet by ORAL route every 12 hours for 5 days; 10 tablet; Refills: 0, [facility] Product Selection Permitted - promethazine 25 mg Oral Tablet - take 1 tablet by ORAL route every 6 hours As needed; 10 tablet; Refills: 0, mh7 Product Selection Permitted - dicyclomine 20 mg Oral Tablet - take 1 tablet by ORAL route 4 times per day As needed; 20 tablet; Refills: 0, mh7 Product Selection Permitted Signatures: Dispatcher [employer] Juanpablo Chua, RN RN Lorena Zhang RN RN vg1 Jose Daniels MD MD 7 Kevyn Olsen RN RN mr2 Juli Bowden RN cc4 Corrections: (The following items were deleted from the chart) 01/13 21:25 20:52 CORONAVIRUS+MR.LAB.BRZ ordered. EDAZ EDMS
--- NOTE | 2021-01-13 23:44 | ER ---
Nurse's Notes [facility] Name: Siria Godinez Age: 30 yrs Sex: Female : 1990 Arrival Date: 01/13/2021 Time: 16:06 Bed 30 Private MD: Dara Reilly C Diagnosis: Abdominal pain, Generalized;Gastroenteritis;Headache;Dehydration;Calculus of kidney Presentation: 01/13 16:56 Chief complaint: Patient states: Headache, NVD, chills, ABD pain began last night. vg1 States vomiting and diarrhea about every 30 minutes. Coronavirus screen: Vaccine status: Patient reports being unvaccinated. Client denies travel out of the [place] in the last 14 days. Client presents with at least one sign or symptom that may indicate coronavirus-19. Standard/surgical mask placed on the client. Ebola Screen: Patient negative for fever greater than or equal to 101.5 degrees Fahrenheit, and additional compatible Ebola Virus Disease symptoms. Initial Sepsis Screen: Does the patient meet any 2 criteria? No. Patient's initial sepsis screen is negative. Does the patient have a suspected source of infection? No. Patient's initial sepsis screen is negative. Risk Assessment: Do you want to hurt yourself or someone else? Patient reports no desire to harm self or others. Onset of symptoms was January 12, 2021. 16:56 Method Of Arrival: Ambulatory vg1 16:56 Acuity: VICENTA 3 vg1 Triage Assessment: 16:58 General: Appears in no apparent distress. uncomfortable, Behavior is calm, cooperative. vg1 Pain: Complains of pain in left upper quadrant and left lower quadrant. Neuro: Level of Consciousness is awake, alert, obeys commands, Oriented to person, place, time, situation. 20:05 Pain: Also complains of Diarrhea \T\ vomiting multiple times today. cc4 20:05 Headache History: Other Reports h/o headaches. 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 - Social history:: Smoking status: Patient reports the use of cigarette tobacco products, denies chronic smoking, but will smoke occasionally. Screenin:05 Abuse screen: Denies threats or abuse. Nutritional screening: No deficits noted. cc4 Tuberculosis screening: No symptoms or risk factors identified. Fall Risk None identified. Assessment: 19:10 Reassessment: pt called from lobby, no response. vg1 20:05 General: Appears uncomfortable, Behavior is calm, cooperative. General: Reports cc4 abdominal cramping last night with vomiting \T\ diarrhes starting this am; c/o headache APT.. Pain: Complains of pain in head Pain currently is 8 out of 10 on a pain scale. Quality of pain is described as aching, Pain began Today. Neuro: No deficits noted. Level of Consciousness is awake, alert, obeys commands, Oriented to person, place, time, situation. Cardiovascular: No deficits noted. Denies chest pain, Heart tones S1 S2. Respiratory: No deficits noted. Airway is patent Breath sounds are clear bilaterally. GI: No deficits noted. Abdomen is non-distended, obese, Bowel sounds present X 4 quads. hyperactive in right upper quadrant, left upper quadrant, right lower quadrant and left lower quadrant. : No deficits noted. No signs and/or symptoms were reported regarding the genitourinary system. EENT: No deficits noted. No signs and/or symptoms were reported regarding the EENT system. Derm: No deficits noted. No signs and/or symptoms reported regarding the dermatologic system. Skin is intact. Musculoskeletal: No deficits noted. No signs and/or symptoms reported regarding the musculoskeletal system. Capillary refill < 3 seconds, # 20 g saline lock inserted right AC x 1 attempt, oksana. well with blood drawn \T\ sent to lab. 21:00 Reassessment: No changes from previously documented assessment. Swabbed for Covid / cc4 influenza \T\ sent to lab, oksana. well. 21:07 Reassessment: No changes from previously documented assessment. IV NS hung to right AC cc4 saline lock \T\ infusing \T\ bolus rate with no s/sx's of infiltration; meds given as ordered per NAN Bagley; no vomiting noted; VSS. 21:45 General: Reports headache has decreased to 1/10; VSS.. cc4 22:00 General: To CT via stretcher.. cc4 Vital Signs: 16:56 BP 125 / 73; Pulse 89; Resp 16; Temp 98.0; Pulse Ox 98% ; Weight 99.79 kg; Height 5 ft. vg1 2 in. (157.48 cm); Pain 4/10; 20:05 BP 110 / 53; Pulse 90; Resp 20; Temp 98.69; Pulse Ox 100% on R/A; cc4 21:00 BP 104 / 55; Pulse 84; Resp 18; Pulse Ox 100% on R/A; cc4 21:45 BP 93 / 68; Pulse 78; Resp 20; Pulse Ox 100% on R/A; cc4 22:15 BP 108 / 49; Pulse 85; Resp 20; Pulse Ox 100% on R/A; cc4 23:15 BP 109 / 60; Pulse 78; Resp 20; Pulse Ox 100% on R/A; cc4 01/14 00:06 BP 111 / 56; Pulse 78; Resp 18; Temp 98.7; Pulse Ox 100% on R/A; cc4 01/13 16:56 Body Mass Index 40.24 (99.79 kg, 157.48 cm) 1 ED Course: 01/13 16:06 Patient arrived in ED. am2 16:06 Dara Reilly FNP is Private Physician. am2 16:58 Triage completed. vg1 16:58 Arm band placed on. 1 19:05 Kevyn Olsen, NAN is Primary Nurse. mr2 19:08 Jose Daniels MD is Attending Physician. 7 20:05 Patient has correct armband on for positive identification. Bed in low position. Call [facility] light in reach. Side rails up X 1. 20:05 by ED staff, sent to lab. Urine collected:. Inserted saline lock: 20 gauge in right cc4 antecubital area, using aseptic technique. 20:26 Jose Daniels MD is Attending Physician. mh7 20:30 Inserted saline lock: 20 gauge in right antecubital area, using aseptic technique. oe Blood collected. 20:32 Basic Metabolic Panel Sent. cc4 20:32 CBC with Diff Sent. cc4 20:32 Hepatic Function Sent. cc4 20:32 Lipase Sent. cc4 21:40 SARS-COV-2 RT PCR Sent. cc4 21:40 CT Head Brain wo Cont Sent. cc4 21:40 CT Abd/Pelvis - IV Contrast Only Sent. cc4 21:41 Influenza Screen (a \T\ B) Sent. cc4 22:05 CT Head Brain wo Cont In Process Unspecified. EDMS 22:18 CT Abd/Pelvis - IV Contrast Only In Process Unspecified. EDMS 01/14 00:06 No provider procedures requiring assistance completed. cc4 00:06 IV discontinued, intact, bleeding controlled, No redness/swelling at site. Pressure cc4 dressing applied. Administered Medications: 01/13 21:07 Drug: Benadryl (diphenhydrAMINE) 50 mg Route: IVP; Site: right antecubital; mr2 01/14 00:06 Follow up: Response: No adverse reaction; Pain is decreased cc4 01/13 21:07 Drug: Pepcid (famotidine) 20 mg Route: IVP; Site: right antecubital; mr2 01/14 00:06 Follow up: Response: No adverse reaction; Nausea is decreased cc4 01/13 21:08 Drug: NS 0.9% 1000 ml Route: IV; Rate: 1000 ml; Site: right antecubital; mr2 01/14 00:06 Follow up: IV Intake: 1000ml cc4 01/13 21:08 Drug: Reglan (metoCLOPramide) 10 mg Route: IVP; Site: right antecubital; mr2 01/14 00:06 Follow up: Response: No adverse reaction; Nausea is decreased cc4 Intake: 00:06 IV: 1000ml; Total: 1000ml. cc4 Outcome: 01/13 23:43 Discharge ordered by . [facility] 01/14 00:06 Discharged to home ambulatory. cc4 Condition: improved Discharge instructions given to patient, Instructed on discharge instructions, follow up and referral plans. medication usage, Demonstrated understanding of instructions, follow-up care, medications, Prescriptions given X 3. 00:18 Patient left the ED. cc4 Signatures: Dispatcher [employer] EDAR Kunal Hutchinson Amanda am2 Lorena Delong, RN RN vg1 Jose Daniels MD MD 7 Juli Bowden RN RN cc4 Kevyn Olsen RN RN mr2
[2021-01-14 00:49] VITALS: O2SAT 100
[2021-01-14 01:27] VITALS: BP 111/56; TEMP 98.7
--- NOTE | 2021-01-14 12:34 | RAD REPORT ---
EXAM DESCRIPTION: CT - Abdomen Pelvis W Contrast - 01/14/2021 6:55 am CLINICAL HISTORY: Abd pain;Nausea / vomiting. Left lower quadrant pain. History of appendectomy and cholecystectomy. COMPARISON: None. TECHNIQUE: CT of the abdomen and pelvis was performed following intravenous administration of iodina debi contrast. Arterial phase images of the abdomen, and portal venous phase images of the abdomen and pelvis were obtained. Oral contrast was not administered. Axial, coronal, and sagittal soft tissue w indow reconstructions were created and sent to PACS. This exam was performed according to our departmental dose-optimization program, which includes autom ated exposure control, adjustment of the mA and/or kV according to patient size and/or use of iterati ve reconstruction technique. FINDINGS: Thoracic: No significant abnormality. Hepatobiliary: No concerning hepatic lesion identified. The portal veins are patent. The gallbladder is surgically absent. No biliary ductal dilatation. Pancreas: Unremarkable. Spleen: Unremarkable. Gastrointestinal: No evidence of bowel obstruction or perienteric inflammation. The appendix is surgi patricia absent. Small amount of fecal material throughout the colon. Decompressed left colon. Small shanique unt of liquid stool in the right colon and transverse colon. Adrenals: No abnormality identified in either adrenal gland. Renal: Nonobstructive 0.4 cm calculus in the inferior right kidney. No ureteral calculi or hydronephr osis bilaterally. No concerning parenchymal abnormality in either kidney. Bladder/Reproductive: Unremarkable appearance of the urinary bladder by CT technique. Unremarkable CT appearance of the uterus and ovaries. Vascular/Lymphatics: No lymphadenopathy identified by CT size criteria. Abdominal aorta is normal in caliber. 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 The major visceral vessels ar e patent. Musculoskeletal: No concerning osseous lesion identified. Fluid / peritoneum: No significant free fluid. No free intraperitoneal air identified. IMPRESSION 1. Small amount of liquid stool in the right colon and transverse colon. Decompressed l eft colon 2. Small right renal nonobstructive calculus. No ureteral calculi or hydronephrosis bilaterally. 3. 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 Electronically signed by: Dilia Painting MD 01/13/2021 10:40 PM CDT Due to temporary technical issues with the PACS/Fluency reporting system, reports are being signed by the in house radiologist without review as a courtesy to ensure prompt reporting. The interpreting r adiologist is fully responsible for the content of the report.
--- NOTE | 2021-01-14 12:44 | RAD REPORT ---
EXAM DESCRIPTION: CT - Head Brain Wo Cont - 01/14/2021 6:56 am CLINICAL HISTORY: HEADACHE. TECHNIQUE: Axial, coronal, and sagittal images through the brain were performed in the absence of in travenous contrast. This exam was performed according to our departmental dose-optimization program w hich includes use of Automated Exposure Control, adjustment of the mA and/or kV according to patient size and/or use of iterative reconstruction technique. COMPARISON: CT head from December 15, 2014. FINDINGS: The brain parenchyma appears unremarkable. There is no intra-axial or extra-axial bleed se en. There is no mass or mass effect. The ventricles are unremarkable. The orbital contents appear unr emarkable. The visualized paranasal sinuses and mastoid air cells are patent. No acute fracture is identified. IMPRESSION: No acute intracranial abnormality identified. Electronically signed by: Dilia Painting MD 01/13/2021 10:35 PM CDT Due to temporary technical issues with the PACS/Fluency reporting system, reports are being signed by the in house radiologist without review as a courtesy to ensure prompt reporting. The interpreting r adiologist is fully responsible for the content of the report.
== END 2021-01-14 00:18 | disposition home or self-care (01) ==
LOC: ER 16:03
DX: K52.9 Noninfective gastroenteritis and colitis, unspecified (principal); E86.0 Dehydration; N20.0 Calculus of kidney; R51.9 Headache, unspecified; F17.210 Nicotine dependence, cigarettes, uncomplicated; Z20.822 Contact with and (suspected) exposure to COVID-19; Z88.8 Allergy status to other drugs, medicaments and biological substances
CPT/HCPCS: 85025; 80048; 36415; 81025; 80076; 81003; 83690; 87804 ×2; 70450; 74177; U0003; Q9967; J2765; J1200; J7030; 96374; 96375; 99284

== ENCOUNTER 2021-03-25 21:03 | Emergency (ER) | payer OTHER ==
--- OUTSIDE RECORDS SUMMARY | 2021-03-25 21:08 | XMS REPORT | Continuity of Care Document ---
:1990 Author Organization [facility] Address [facility] Jesús [address] [place] [address] Care Team Providers Name Role Phone ASH C Attending Clinician Unavailable Buddy PETE Attending Clinician Unavailable SCHMITT Attending Clinician Unavailable Genesis WESTON Attending Clinician Unavailable SCHMITT Admitting Clinician Unavailable Payers Payer Name Policy Type Policy Number Effective Date Expiration Date Clara MCPHERSON [id number] 2018 HEALTH 00:00:00 Problems This patient has no known problems. Allergies, Adverse Reactions, Alerts Allergy Allergy Status Severity Reaction(s) Onset Inactive Treating Comm ents Source Name Type Date Date Clinician [place] [facility] Active Hives [facility] 4-15 ity of 00:00: [address] Medications This patient has no known medications. Procedures This patient has no known procedures. Encounters Start End Encounter Admission Attending Care Care Encounter Source Date/Time Date/Time Type Type Clinicians Facility Department ID 2021-01-24 Emergency [facility] [id number] Univers 13:14:23 ity of [facility] 2019-09-19 2019-09-19 Outpatient R AKINSIPE, [facility] [id number] Univers 09:45:00 09:45:00 KENDELL [id number] ity o f [facility] 2019-09-19 2019-09-19 Outpatient R AKINSIPE, [facility] [id number] Univers 09:45:00 09:45:00 KENDELL webby o f [facility] 2019-08-29 2019-08-29 Outpatient R AKINSIPE, [facility] [id number] Univers 13:15:00 13:15:00 KENDELL [id number] ity o f [facility] 2019-07-17 2019-07-17 Outpatient R AKINSIPE, [facility] [id number] Univers 13:30:00 13:30:00 KENDELL [id number] ity o [facility] 2019-07-17 2019-07-17 Outpatient R AKINSIPE, [facility] [id number] Univers 13:30:00 13:30:00 KENDELL webby o f [facility] 2019-07-16 2019-07-16 Outpatient R AKINSIPE, [facility] [id number] Univers 13:45:00 13:45:00 KENDELL [id number] ity o [facility] 2019-07-16 2019-07-16 Outpatient R AKINSIPE, [facility] [id number] Univers 13:45:00 13:45:00 KENDELL justyn o [facility] 2019-06-25 2019-06-25 Outpatient R JUAN R, [facility] [id number] Univers 08:15:00 08:15:00 ALLSYSA Marie30 [facility] 2019-06-25 2019-06-25 [facility] [id number] Univers 08:15:00 08:15:00 ALLYSSA [facility] 2019-05-18 2019-05-18 Out[facility] [id number] Univers 08:30:00 08:30:00 ALLYSSA [facility] 2019-04-13 2019-04-14 Outpatient P KESHIA, [facility] BRANDY [id number] Univers 22:01:00 00:40:00 ANTONETTE [facility] 2019-04-12 2019-04-12 Outpatient P ENRICO [facility] [id number] Univers 08:00:00 08:37:51 CHELA [facility] Results This patient has no known results.
[2021-03-25] MEDS ORDERED: ACETAMINOPHEN 500 MG TAB ONE (22:04)
[2021-03-25] MEDS ORDERED: ONDANSETRON 4 MG/2 ML VIAL ONE (22:05)
[2021-03-25] MEDS ORDERED: KETOROLAC 30 MG/ML INJ ONE (22:05)
[2021-03-25] MEDS ORDERED: NA CHLORIDE 0.9% 1,000 ML ONE ×2 (22:05→23:55)
[2021-03-25] MEDS ORDERED: PROMETHAZINE INJ 25 MG/ML AMP ONE (22:09)
[2021-03-25 22:13] LABS: Absolute Lymphocytes (CBC) 0.5 K/uL (0.7-4.9); Hematocrit 38.3 % (36.0-45.0); Lymphocytes % 5.9 % (15.3-44.8); MPV 7.6 fL (7.6-11.3); RBC Red Blood Cell Count 4.59 M/uL (3.86-4.86)
[2021-03-25 22:33] LABS: ALT/SGPT 23 U/L (12-78); AST/SGOT 13 U/L (15-37); Albumin 3.5 g/dL (3.4-5.0); Alkaline Phosphatase 88 U/L (45-117); BUN Blood Urea Nitrogen 10 mg/dL (7-18); Bicarbonate 25 mmol/L (21-32); Bilirubin Direct 0.1 mg/dL (0-0.2); Bilirubin Total 0.3 mg/dL (0.2-1.0); Glucose Level 100 mg/dL (74-106); Lipase 66 U/L (73-393); Potassium 3.9 mmol/L (3.5-5.1); Protein, Total 7.5 g/dL (6.4-8.2); Sodium Level 136 mmol/L (136-145)
[2021-03-25 23:46] LABS: Urine Blood Trace-intact (Negative); Urine Glucose Negative (Negative); Urine Protein Negative (Negative); Urine pH 7.5 (5.0-7.0)
--- NOTE | 2021-03-26 00:40 | EDPHYS ---
Physician Documentation [facility] Name: Siria Godinez Age: 30 yrs Sex: Female : 1990 Arrival Date: 03/25/2021 Time: 21:36 Bed 11 Private MD: ED Physician Tejas Lopez HPI: 03/25 23:29 This 30 yrs old Female presents to ER via Wheelchair with complaints of kb Shortness Of Breath, Fever, Abdominal Pain. 23:29 The patient or guardian reports cough, that is intermittent, described as mild, kb difficulty breathing, flu symptoms, low-grade fever, myalgias. Severity of symptoms: At their worst the symptoms were moderate, in the emergency department the symptoms are unchanged. 23:29 Onset: The symptoms/episode began/occurred today. Modifying factors: The symptoms are kb alleviated by nothing, the symptoms are aggravated by nothing. Associated signs and symptoms: Pertinent positives: fever, Pertinent negatives: chest pain, diarrhea, ear ache, nausea, rhinorrhea, sore throat, vomiting. The patient has not experienced similar symptoms in the past. The patient has not recently seen a physician. Pt reports fever, shortness of breath, cough, headache, lower abd and back pain that started today. 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 - Social history:: Smoking status: Patient/guardian denies using tobacco. ROS: 23:28 Cardiovascular: Negative for chest pain, palpitations, and edema. kb 23:28 Constitutional: Positive for body aches, chills, fatigue, fever, malaise. 23:28 ENT: Positive for rhinorrhea. 23:28 Respiratory: Positive for cough, shortness of breath, Negative for dyspnea on exertion, hemoptysis, orthopnea, pleurisy, sputum production, wheezing. 23:28 Abdomen/GI: Positive for abdominal pain, Negative for nausea, vomiting, and diarrhea. 23:28 All other systems are negative. 23:28 Neuro: Positive for headache. kb Exam: 23:28 Constitutional: This is a well developed, well nourished patient who is awake, alert, kb and in no acute distress. Head/Face: Normocephalic, atraumatic. ENT: Moist Mucous membranes Cardiovascular: Regular rate and rhythm with a normal S1 and S2. No gallops, murmurs, or rubs. No pulse deficits. Respiratory: Respirations even and unlabored. No increased work of breathing. Talking in full sentences Skin: Warm, dry with normal turgor. Normal color. MS/ Extremity: Pulses equal, no cyanosis. Neurovascular intact. Full, normal range of motion. Neuro: Awake and alert, GCS 15, oriented to person, place, time, and situation. Moves all extremities. Normal gait. Psych: Awake, alert, with orientation to person, place and time. Behavior, mood, and affect are within normal limits. 23:28 Abdomen/GI: Inspection: abdomen appears normal, Bowel sounds: normal, Palpation: soft, in all quadrants, moderate abdominal tenderness, in the right lower quadrant and left lower quadrant. Vital Signs: 21:53 BP 106 / 55; Pulse 128; Resp 18; Temp 102.4; Pulse Ox 100% on R/A; Weight 99.79 kg; sm5 Height 5 ft. 1 in. (154.94 cm); 22:57 BP 85 / 55; Pulse 109; Resp 24 S; Temp 100.2(O); Pulse Ox 100% on R/A; bb 23:46 BP 96 / 48; Pulse 103; Resp 20 S; Pulse Ox 99% on R/A; bb 03/26 01:21 BP 100 / 62; Pulse 94; Resp 16 S; Temp 98(O); Pulse Ox 100% on R/A; bb 03/25 21:53 Body Mass Index 41.57 (99.79 kg, 154.94 cm) [facility] MDM: 03/25 22:06 Patient medically screened. kb 23:24 Data reviewed: vital signs, nurses notes. Data interpreted: Pulse oximetry: on room air kb is 100 %. Interpretation: normal. 03/26 00:39 Counseling: I had a detailed discussion with the patient and/or guardian regarding: the kb historical points, exam findings, and any diagnostic results supporting the discharge/admit diagnosis, lab results, radiology results, the need for outpatient follow up, a family practitioner, to return to the emergency department if symptoms worsen or persist or if there are any questions or concerns that arise at home. 03/25 22:00 Order name: Basic Metabolic Panel; Complete Time: 22:34 [facility] 03/25 22:00 Order name: CBC with Diff; Complete Time: 22:28 [facility] 03/25 22:00 Order name: Hepatic Function; Complete Time: 22:34 [facility] 03/25 22:00 Order name: Lipase; Complete Time: 22:34 [facility] 03/25 22:02 Order name: CT Abd/Pelvis - IV Contrast Only [facility] 03/25 23:46 Order name: Urine Dipstick-Ancillary; Complete Time: 23:50 EDMS 03/25 22:00 Order name: IV Saline Lock; Complete Time: 22:08 [facility] 03/25 22:00 Order name: Labs collected and sent; Complete Time: 22:08 [facility] 03/25 23:39 Order name: Urine Dipstick-Ancillary (obtain specimen); Complete Time: 23:48 kb Administered Medications: 03/25 22:08 Drug: Acetaminophen 1000 mg Route: PO; 5 23:00 Follow up: Response: No adverse reaction; Temperature is decreased bb 22:09 Drug: NS 0.9% 1000 ml Route: IV; Rate: 1000 ml; Site: right antecubital; 5 23:47 Follow up: IV Status: Completed infusion; IV Intake: 1000ml bb 22:09 Drug: Ketorolac 15 mg Route: IVP; Site: right antecubital; 5 23:47 Follow up: Response: No adverse reaction bb 22:09 Drug: Phenergan (promethazine) 12.5 mg Route: IVP; Site: right antecubital; 5 23:47 Follow up: Response: No adverse reaction bb 23:52 Drug: NS 0.9% 1000 ml Route: IV; Rate: 1000 ml; Site: right antecubital; bb 03/26 01:22 Follow up: IV Status: Completed infusion; IV Intake: 950ml bb Disposition: 03:20 Co-signature as Attending Physician, Tejas Lopez MD. pkl Disposition Summary: 03/26/21 00:39 Discharge Ordered Location: Home kb Condition: Stable kb Diagnosis - Lower abdominal pain, unspecified kb - Acute upper respiratory infection, unspecified kb Followup: kb - With: Emergency Department - When: As needed - Reason: Worsening of condition Followup: kb - With: Private Physician - When: 2 - 3 days - Reason: Recheck today's complaints, Continuance of care, Re-evaluation by your physician Discharge Instructions: - Discharge Summary Sheet kb - Abdominal Pain, Adult, [id number] kb - Upper Respiratory Infection, Adult, [id number] kb - Viral Respiratory Infection, [id number] kb Forms: - Medication Reconciliation Form kb - Thank You Letter kb - Antibiotic Education kb - Prescription Opioid Use kb Prescriptions: - Diclofenac Sodium 75 mg Oral tablet,delayed release (DR/EC) - take 1 tablet by ORAL route 2 times per day As needed; 30 tablet; Refills: 0, kb Product Selection Permitted - promethazine 25 mg Oral Tablet - take 1 tablet by ORAL route every 8 hours As needed; 20 tablet; Refills: 0, kb Product Selection Permitted Signatures: Dispatcher [employer] Lizzy Dunn FNP-C FNP-Tejas Davis MD MD pkl Ballard, Brenda, RN RN Beatriz Young RN RN sm5
--- NOTE | 2021-03-26 00:40 | ER ---
Nurse's Notes [facility] Name: Siria Godinez Age: 30 yrs Sex: Female : 1990 Arrival Date: 03/25/2021 Time: 21:36 Bed 11 Private MD: Diagnosis: Lower abdominal pain, unspecified;Acute upper respiratory infection, unspecified Presentation: 03/25 21:53 Chief complaint: Patient states: she has had a 104.6 fever, abd and lower back pain, sm5 headache, runny nose. Coronavirus screen: Vaccine status: Patient reports being unvaccinated. fever, headache, runny nose, shortness of breath. Ebola Screen: No symptoms or risks identified at this time. Initial Sepsis Screen: Does the patient meet any 2 criteria? Temp <36.0*C (96.8*F)) or > 38.3*C (100.9*F). HR > 90 bpm. Does the patient have a suspected source of infection? No. Patient's initial sepsis screen is negative. Risk Assessment: Do you want to hurt yourself or someone else? Patient reports no desire to harm self or others. Onset of symptoms was March 25, 2021. 21:53 Method Of Arrival: Wheelchair [facility] 21:53 Acuity: VICENTA 2 5 Triage Assessment: 21:57 General: Appears in no apparent distress. Behavior is cooperative. Pain: Complains of sm5 pain in head and abdomen. Neuro: No deficits noted. Level of Consciousness is awake, alert, Oriented to person, place, time, situation. Cardiovascular: No deficits noted. Capillary refill < 3 seconds Patient's skin is warm and dry. Respiratory: No deficits noted. Reports shortness of breath Airway is patent Trachea midline Respiratory effort is even, unlabored, Onset: The symptoms/episode began/occurred today, the patient has mild shortness of breath. GI: Reports lower abdominal pain, upper abdominal pain. 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 - Social history:: Smoking status: Patient/guardian denies using tobacco. Screenin:58 Abuse screen: Denies threats or abuse. Denies injuries from another. Nutritional 5 screening: No deficits noted. Tuberculosis screening: No symptoms or risk factors identified. Fall Risk None identified. Assessment: 22:57 General: Appears in no apparent distress. ill, obese, Behavior is calm, cooperative. bb Neuro: Level of Consciousness is awake, alert, obeys commands, Oriented to person, place, time, situation. Cardiovascular: Capillary refill < 3 seconds Rhythm is sinus tachycardia. Respiratory: Respiratory effort is shallow, Respiratory pattern is tachypnea Breath sounds are diminished bilaterally. GI: Abdomen is round. Derm: Skin is moist, Skin is normal, Skin temperature is warm. Musculoskeletal: Circulation, motion, and sensation intact. 22:59 Reassessment: IV site intact, patent with fluids infusing no erythema or edema noted. bb 23:46 Reassessment: Patient is alert, oriented x 3, equal unlabored respirations, skin bb warm/dry/pink. pt resting quietly, IV site intact with no erythema or edema noted, family at bedside. 03/26 01:20 Reassessment: Patient is alert, oriented x 3, equal unlabored respirations, skin bb warm/dry/pink. pt ambulated with steady gait to the bathroom states she feels fine. Pt verbalized understanding of and agrees to plan of care discharge instructions given pt ambulated with steady gait to exit accompanied by family Patient states feeling better. Vital Signs: 03/25 21:53 BP 106 / 55; Pulse 128; Resp 18; Temp 102.4; Pulse Ox 100% on R/A; Weight 99.79 kg; 5 Height 5 ft. 1 in. (154.94 cm); 22:57 BP 85 / 55; Pulse 109; Resp 24 S; Temp 100.2(O); Pulse Ox 100% on R/A; bb 23:46 BP 96 / 48; Pulse 103; Resp 20 S; Pulse Ox 99% on R/A; bb 03/26 01:21 BP 100 / 62; Pulse 94; Resp 16 S; Temp 98(O); Pulse Ox 100% on R/A; bb 03/25 21:53 Body Mass Index 41.57 (99.79 kg, 154.94 cm) 5 ED Course: 03/25 21:36 Patient arrived in ED. ja2 21:56 Triage completed. 5 22:06 [facility]C [facility] kb 22:06 Tejas Lopez MD is Attending Physician. kb 22:30 CT Abd/Pelvis - IV Contrast Only In Process Unspecified. EDMS 22:46 Yumiko Ash, NAN is Primary Nurse. bb 22:57 Patient has correct armband on for positive identification. bb 03/26 01:21 No provider procedures requiring assistance completed. IV discontinued, intact, bb bleeding controlled, No redness/swelling at site. Pressure dressing applied. Administered Medications: 03/25 22:08 Drug: Acetaminophen 1000 mg Route: PO; 5 23:00 Follow up: Response: No adverse reaction; Temperature is decreased bb 22:09 Drug: NS 0.9% 1000 ml Route: IV; Rate: 1000 ml; Site: right antecubital; sm5 23:47 Follow up: IV Status: Completed infusion; IV Intake: 1000ml bb 22:09 Drug: Ketorolac 15 mg Route: IVP; Site: right antecubital; 5 23:47 Follow up: Response: No adverse reaction bb 22:09 Drug: Phenergan (promethazine) 12.5 mg Route: IVP; Site: right antecubital; 5 23:47 Follow up: Response: No adverse reaction bb 23:52 Drug: NS 0.9% 1000 ml Route: IV; Rate: 1000 ml; Site: right antecubital; bb 03/26 01:22 Follow up: IV Status: Completed infusion; IV Intake: 950ml bb Intake: 03/25 23:47 IV: 1000ml; Total: 1000ml. bb 03/26 01:22 IV: 950ml; Total: 1950ml. bb Outcome: 00:39 Discharge ordered by . kb 01:22 Discharged to home ambulatory, with family. bb 01:22 Condition: stable 01:22 Discharge instructions given to patient, Instructed on discharge instructions, follow up and referral plans. medication usage, Demonstrated understanding of instructions, follow-up care, medications, Prescriptions given X 2. 01:22 Patient left the ED. bb Signatures: Dispatcher [employer] EDMS Lizzy Grace FNP-C FNP-Yumiko Beltran, RN RN bb Doreen Looney [facility] Adilson, Beatriz, RN RN sm5
[2021-03-26 01:47] VITALS: BP 100/62; TEMP 98; O2SAT 100
[2021-03-26 11:52] LABS: SARS-COV-2 RT PCR POSITIVE (NEGATIVE)
--- NOTE | 2021-03-26 14:47 | RAD REPORT ---
EXAM DESCRIPTION: Abdomen Pelvis W Contrast CLINICAL HISTORY: 30-year-old female with abdominal pain. COMPARISON: 01/13/2021. TECHNIQUE: CT of the abdomen and pelvis was performed following intravenous administration of contra st. Oral contrast was not administered. Multiplanar reformatted images were provided. This exam was p erformed according to our departmental dose optimization program which includes use of automated expo sure control, adjustment of the mA and/or kV according to patient size and/or use of iterative recons truction technique. FINDINGS: Chest: Evaluation through the lung bases reveals no focal opacity, pleural effusion or pne umothorax. Heart size is within normal limits. No pericardial effusion. Abdomen and pelvis: The liver, pancreas, spleen, bilateral kidneys and bilateral adrenal glands are w ithin normal limits. Punctate focus of calcification present within the lower pole of the RIGHT kidne y measuring approximately 2 mm compatible with nonobstructing calculus. Surgical clips at the level of the gallbladder fossa status post cholecystectomy. The vessels are patent and normal in caliber. 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 No abdominopelvic lymph nodes are noted to be pathologically enlarged by CT measurement criteria. The bowel is within normal limits without abnormal bowel wall thickness or bowel dilation. No free air. No free abdominopelvic fluid collections. The appendix is not identified. The osseous structures are within normal limits. IMPRESSION: 1. No specific acute intra-abdominal findings are noted to suggest etiology of the pat ient's abdominal pain. 2. Stable appearance of splenic artery pseudoaneurysm. 3. 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 The interpreting r adiologist is fully responsible for the content of the report.
== END 2021-03-26 01:22 | disposition home or self-care (01) ==
LOC: ER 21:03
DX: J06.9 Acute upper respiratory infection, unspecified (principal); R10.30 Lower abdominal pain, unspecified; Z20.822 Contact with and (suspected) exposure to COVID-19
CPT/HCPCS: 96361; 85025; 80048; 36415; 82565; 80076; 81003; 83690; 0240U; 74177; 96375; 96374; 99284; Q9967; J2550; J7030 ×2; J2405; 87804

== ENCOUNTER 2022-10-01 18:55 | Emergency (ER) | payer OTHER ==
--- OUTSIDE RECORDS SUMMARY | 2022-10-01 18:59 | XMS REPORT | Continuity of Care Document ---
:1990 Author Organization [facility] t Address [address] [facility] [place] [id number] Care Team Providers Name Role Phone HAMMERROHIT WadeLCMarissa Franck Primary Care Physician Unavailable JESÚS LONG Attending Clinician Unavailable Jesús Long DPM Attending Clinician KENDELL ALEMAN Attending Clinician Unavailable ALLYSSA PETE Attending Clinician Unavailable ANTONETTE SCHMITT Attending Clinician Unavailable CHELA WESTON Attending Clinician Unavailable JESÚS LONG Admitting Clinician Unavailable ANTONETTE SCHMITT Admitting Clinician Unavailable Payers Payer Name Policy Type Policy Number Effective Date Expiration Date Clara MCPHERSON [id number] 2018 HEALTH 00:00:00 Problems Condition Condition Condition Status Onset Resolution Last Treating Co mments Source Name Details Category Date Date Treatment Clinician Date Disease Active 2020-0 U nivers care and care and 3-30 ity of examinatio examinatio 00:00: Jn steele n of n of 00 Medical lactating lactating Bran ch mother mother History of History of Disease Active 2020-0 U nivers tubal tubal 2-14 ity of ligation ligation 00:00: [address] Branch Infection, Infection, Disease Active 2020-0 U nivers Shigella Shigella 2-05 ity of 00:00: [address] Branch Allergies, Adverse Reactions, Alerts Allergy Allergy Status Severity Reaction(s) Onset Inactive Treating Comm ents Source Name Type Date Date Clinician ONDANSET DRUG Active Hives Univers PATIENCE HCL INGREDI 4-15 ity of 00:00: [place] [address] Medical Branch Ondanset Propensi Active Hives Univer s patience Hcl ty to 4-15 ity of adverse 00:00: [place] reaction 00 Medical s Branch Social History Social Habit Start Date Stop Date Quantity Comments Source Alcohol intake 2019-05-19 2019-05-19 Ex-drinker [facility] 00:00:00 00:00:00 (finding) [facility] Tobacco use and 2018-10-02 2018-10-02 Smokeless tobacco Un iversity of exposure 00:00:00 00:00:00 non-user [facility] Sex Ass[birth year] At [birth year] Universit y of 00:00:00 00:00:00 [facility] Smoking Status Start Date Stop Date Source Never smoked tobacco [facility] Medications Ordered Filled Start Stop Current Ordering Indication Dosage Frequency Signature Comments Components Source Medication Medication Date Date Medication? Clinician (SIG) Name Name ibuprofen 2019-03 Yes [id number] 600mg Take 1 Univers 600 mg 2-27 tablet by ity of tablet 00:00: mouth [place] 00 every 6 Medical (six) Branch hours as needed for Pain (scale 4-6). benzonatate 2019-03 Yes [id number] 200mg Take 1 Univers 200 mg 2-27 capsule by ity of capsule 00:00: mouth 3 [place] 00 (three) Medical times Branch daily as needed for Cough for up to 20 doses. predniSONE 2019-03 Yes [id number] 1 PO BID x Univers 20 mg 2-27 4 days ity of tablet 00:00: [place] 00 Medical Branch albuterol 2019-03 Yes [id number] 2{puff} Inhale 2 Univers 90 2-27 Puffs ity of mcg/actuati 00:00: every 4 [place] as on inhaler 00 (four) Medical hours as Branch needed for Wheezing or Shortness of Breath. proMETHazin 2019-03 Yes [id number] 25mg Take 1 Univers e 25 mg 2-27 tablet by ity of tablet 00:00: mouth [place] 00 every 4 Medical (four) Branch hours as needed for Nausea and Vomiting (N/V). docusate Yes [id number] 240mg Take 1 U nivers calcium 240 2-22 capsule by it y of mg capsule 00:00: mouth [place] 00 daily as Medical needed for Branch Constipati on. ibuprofen Yes [id number] 600mg Take 1 Univers 600 mg 2-22 tablet by ity of tablet 00:00: mouth [place] 00 every 6 Medical (six) Branch hours as needed (Pain). Take with food or milk. Iron Fum & 2020- Yes [id number] 1{capsu Take 1 Univers P-FA-Vit B 2-22 le} capsule by ity of & C No.9 00:00: mouth [place] (INTEGRA 00 daily. Medical PLUS) 125 Branch mg iron- 1 mg Cap HYDROcodone Yes [id number] 1{tbl} Take 1 Univers -acetaminop 2-22 tablet by ity of hen 5-325 00:00: mouth [place] mg tablet 00 every 6 Medical (six) Branch hours as needed for Pain (scale 7-10) (if not controlled by ibuprofen) . Immunizations Ordered Filled Immunization Date Status Comments Melissa wade Immunization Name Name TDAP (ADACEL) 2019-03-19 Completed University of VACCINE 00:00:00 [facility] Influenza Virus 2019-01-30 Completed [facility] of Vaccine Quad .5 mL 00:00:00 [facility] 6+ MO Branch Procedures Procedure Date / Time Performed Performing Clinician Melissa wade MR ANKLE RIGHT WO 2022 18:26:02 Jesús Long [facility] PATIENT FINANCIAL 2022 17:33:55 Doctor Unassigned, No [facility] POLICY [facility] CONSENT/REFUSAL FOR 2022 17:33:06 Doctor Unassigned, No [facility] DIAGNOSIS AND [facility] TREATMENT ASSIGNMENT OF BENEFITS 2022 17:32:51 Doctor Unassigned, No [facility] Encounters Start End Encounter Admission Attending Care Care Encounter Source Date/Time Date/Time Type Type Clinicians Facility Department ID 2021-01-24 Emergency [facility] [id number] [facility] Outpatient R ETHAN [facility] [id number] Univers 12:33:53 23:59:00 JESÚS [facility] 2022 2022 Hospital Ethan [facility] [id number] Univers 12:33:53 23:59:00 Encounter Jesús ARTEAGA [id number] [facility] [id number] [facility] [id number] [place] [address] Branch 2019-09-19 2019-09-19 Outpatient R ASH, [facility] [id number] Univers 09:45:00 09:45:00 KENDELL quintero o [facility] 2019-07-17 2019-07-17 Outpatient R ASH, [facility] [id number] Univers 13:30:00 13:30:00 KENDELL jonjustyn o [facility] 2019-07-16 2019-07-16 Outpatient R ASH, [facility] [id number] Univers 13:45:00 13:45:00 KENDELL yanez [facility] 2019-06-25 2019-06-25 Outpatient R [facility] [id number] Univers 08:15:00 08:15:00 ALLYSSA [facility] 2019-05-18 2019-05-18 Outpatient R [facility] [id number] Univers 08:30:00 08:30:00 ALLYSSA [facility] 2019-04-13 2019-04-14 Outpatient P KESHIA, [facility] BRANDY [id number] Univers 22:01:00 00:40:00 ANTONETTE [facility] 2019-04-12 2019-04-12 Outpatient P ENRICO [facility] [id number] Univers 08:00:00 08:37:51 CEHLA [facility] Results This patient has no known results.
[2022-10-01 20:17] LABS: Specific Gravity 1.022 (1.005-1.030)
[2022-10-01 20:19] LABS: Urine Bacteria <20 /HPF (<20); Urine Mucus Slight /HPF (None Seen); Urine RBC <5 /HPF (None Seen)
--- NOTE | 2022-10-01 20:49 | RAD REPORT ---
EXAM DESCRIPTION: RAD - Lumbar Spine 3 Views - 10/01/2022 8:15 pm CLINICAL HISTORY: PAIN COMPARISON: No comparisons TECHNIQUE: Lumbar spine, 3 views. FINDINGS: Lumbar vertebral bodies are normal in height and alignment. No fracture or acute bony proc ess seen. No disc space narrowing. No other significant findings. IUD in place. IMPRESSION: No acute lumbar fracture or subluxation.
[2022-10-01] MEDS ORDERED: KETOROLAC 30 MG/ML INJ ONE (21:53)
--- NOTE | 2022-10-01 22:43 | RAD REPORT ---
EXAM DESCRIPTION: US - Extremity Venous Uni Ltd - 10/01/2022 10:30 pm CLINICAL HISTORY: Pain COMPARISON: None. TECHNIQUE: Real-time sonographic evaluation of the right lower extremity deep venous system was perf ormed. FINDINGS: Normal compressibility, flow augmentation, phasic flow and spontaneous flow is identified in the right lower extremity deep venous system. No intraluminal filling defects seen. IMPRESSION: No DVT in the right lower extremity.
--- NOTE | 2022-10-01 23:04 | ER ---
Nurse's Notes [facility] Name: Siria Godinez Age: 32 yrs Sex: Female : 1990 Arrival Date: 10/01/2022 Time: 18:55 Bed 12 Private MD: Diagnosis: Lumbago with sciatica, right side Presentation: 10/01 19:44 Chief complaint: Patient states: I had surgery September 16 for my plantar fascitis and vc1 bone spurs. I tried to get in today because my leg is going cold and numb and pain is shooting up calf to the back. My Dr. told me to go to the ER to check for a blood clot. Coronavirus screen: Vaccine status: Patient reports being unvaccinated. Client denies travel out of the [place] in the last 14 days. At this time, the client does not indicate any symptoms associated with coronavirus-19. Ebola Screen: Patient negative for fever greater than or equal to 101.5 degrees Fahrenheit, and additional compatible Ebola Virus Disease symptoms Patient denies exposure to infectious person. Patient denies travel to an Ebola-affected area in the 21 days before illness onset. No symptoms or risks identified at this time. Initial Sepsis Screen: Does the patient meet any 2 criteria? No. Patient's initial sepsis screen is negative. Does the patient have a suspected source of infection? No. Patient's initial sepsis screen is negative. Risk Assessment: Do you want to hurt yourself or someone else? Patient reports no desire to harm self or others. Onset of symptoms was September 24, 2021. 19:44 Method Of Arrival: Ambulatory vc1 19:44 Acuity: VICENTA 3 vc1 Triage Assessment: 19:50 General: Appears in no apparent distress. Behavior is calm, cooperative, appropriate vc1 for age. Pain: Complains of pain in right leg Pain radiates to right low back Pain currently is 10 out of 10 on a pain scale. EENT: No deficits noted. No signs and/or symptoms were reported regarding the EENT system. Neuro: Level of Consciousness is awake, alert, obeys commands, Oriented to person, place, time, situation, Appropriate for age. Cardiovascular: No deficits noted. Respiratory: Airway is patent Respiratory effort is even, unlabored, Respiratory pattern is regular, symmetrical. GI: No deficits noted. No signs and/or symptoms were reported involving the gastrointestinal system. : No deficits noted. No signs and/or symptoms were reported regarding the genitourinary system. Derm: No deficits noted. No signs and/or symptoms reported regarding the dermatologic system. Musculoskeletal: Reports pain in right leg. RN [facility]: 19:50 LMP N/A - Irregular menses vc1 Historical: - Allergies: 19:48 Zofran (Hives); vc1 - Home Meds: 19:48 hydrocodone-acetaminophen 7.5-325 mg/15 mL Oral solution every 6 hours [Active]; vc1 aspirin 81 mg Oral capsule once [Active]; - PMHx: 19:48 None; vc1 - PSHx: 19:48 Appendectomy; Gallbladder removal; Ligation of fallopian tube; Bone spur, plantar vc1 fascitits; - Immunization history:: Client reports having NOT received the Covid vaccine. - Social history:: Smoking status: Patient denies any tobacco usage or history of. Screenin:04 [facility] ED Fall Risk Assessment (Adult) History of falling in the last 3 months, cm10 including since admission No falls in past 3 months (0 pts) Confusion or Disorientation No (0 pts) Intoxicated or Sedated No (0 pts) Impaired Gait No (0 pts) Mobility Assist Device Used No (0 pt) Altered Elimination No (0 pt) Score/Fall Risk Level 0 - 2 = Low Risk Oriented to surroundings, Maintained a safe environment, Hourly rounding (assess needs \T\ fall precautionary measures) done. Abuse screen: Denies threats or abuse. Denies injuries from another. Nutritional screening: No deficits noted. Tuberculosis screening: No symptoms or risk factors identified. Assessment: 22:03 Neuro: No deficits noted. Level of Consciousness is awake, alert, Oriented to person, cm10 place, time, situation. Cardiovascular: No deficits noted. Capillary refill < 3 seconds Pulses are all present. Respiratory: No deficits noted. Airway is patent Respiratory effort is even, unlabored, Respiratory pattern is regular, symmetrical. Musculoskeletal: Reports pain in right foot and right leg. Vital Signs: 19:44 BP 133 / 91; Pulse 84; Resp 18; Temp 99.2; Pulse Ox 100% ; Weight 99.34 kg; Height 5 vc1 ft. 2 in. ; Pain 10/10; 23:26 BP 123 / 60; Pulse 81; Resp 16; Pulse Ox 100% on R/A; cm10 19:44 Body Mass Index 40.06 (99.34 kg, 157.48 cm) vc1 19:44 Pain Scale: Adult vc1 ED Course: 18:57 Patient arrived in ED. im 18:58 Miguelito Urbina PA is PHCP. cp 18:58 Trace Stringer MD is Attending Physician. cp 19:48 Triage completed. vc1 19:50 Arm band placed on left wrist. vc1 20:11 Urine Microscopic Only Sent. vc1 20:11 PREGU Sent. vc1 20:17 XRAY Lumbar Spine (3 Views) In Process Unspecified. EDMS 21:44 Shellie Marcano, NAN is Primary Nurse. cm10 22:05 Patient has correct armband on for positive identification. Bed in low position. Call cm10 light in reach. Cardiac monitoring not applicable on this patient. Door closed. Warm blanket given. 22:32 US Extremity Venous Unilateral Ltd In Process Unspecified. EDMS 23:26 No provider procedures requiring assistance completed. Patient did not have IV access cm10 during this emergency room visit. Administered Medications: 21:52 Drug: Ketorolac IM 30 mg Route: IM; Site: left deltoid; cm10 23:25 Follow up: Response: No adverse reaction cm10 23:22 Drug: Lidoderm Topical Patch 5 % (700 mg/patch) 1 patches Route: Topical; Site: cm10 affected area; 23:25 Follow up: Response: No adverse reaction cm10 Medication: 23:26 VIS not applicable for this client. cm10 Outcome: 23:03 Discharge ordered by . cp 23:26 Discharged to home ambulatory. cm10 23:26 Condition: good 23:26 Discharge instructions given to patient, Instructed on discharge instructions, follow up and referral plans. medication usage, Demonstrated understanding of instructions, follow-up care, medications, Prescriptions given X 3. 23:26 Patient left the ED. cm10 Signatures: Dispatcher [employer] EDMS Miguelito Urbina PA PA cp Calcote, Vanessa, RN RN vc1 Janell Brizuela im Shellie Marcano, RN RN cm10
--- NOTE | 2022-10-01 23:04 | EDPHYS ---
Physician Documentation [facility] Name: Siria Godinez Age: 32 yrs Sex: Female : 1990 Arrival Date: 10/01/2022 Time: 18:55 Bed 12 Private MD: ED Physician Trace Stringer HPI: 10/01 19:45 This 32 yrs old Female presents to ER via Ambulatory with complaints of cp Possible blood clot in leg. 19:45 The patient presents with pain, that is acute. cp 19:45 The complaints affect the right leg. cp 19:45 Context: gradually, concerned about DVT due to recent surgery last month. intermittent cp paresthesias to right leg. 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 - Social history:: Smoking status: Patient denies any tobacco usage or history of. ROS: 19:50 Constitutional: Negative for body aches, chills, fever, poor PO intake. cp 19:50 Cardiovascular: Negative for chest pain, palpitations. cp 19:50 Respiratory: Negative for cough, shortness of breath, wheezing. 19:50 Abdomen/GI: Negative for abdominal pain, vomiting, diarrhea, constipation, bowel incontinence. 19:50 Back: Positive for pain at rest, pain with movement, of the low back, right buttock. 19:50 : Negative for urinary symptoms, flank pain, difficulty urinating, bladder incontinence. 19:50 Neuro: Positive for intermittent numbness of right leg, Negative for weakness, saddle anesthesia. 19:50 All other systems are negative. Exam: 20:00 Constitutional: The patient appears in no acute distress, alert, awake, non-toxic, well cp developed, well nourished, uncomfortable. 20:00 Head/Face: Normocephalic, atraumatic. cp 20:00 Eyes: Periorbital structures: appear normal, Conjunctiva: normal, no exudate, no injection, Sclera: no appreciated abnormality, Lids and lashes: appear normal, bilaterally. 20:00 ENT: External ear(s): are unremarkable, Nose: is normal, Mouth: Lips: moist, Oral mucosa: pink and intact, moist, Posterior pharynx: is normal, airway is patent, no erythema, no exudate. 20:00 Chest/axilla: Inspection: normal. 20:00 Cardiovascular: Rate: normal, Rhythm: regular. 20:00 Respiratory: the patient does not display signs of respiratory distress, Respirations: normal, no use of accessory muscles, no retractions, Breath sounds: are clear throughout, no decreased breath sounds, no stridor, no wheezing. 20:00 Abdomen/GI: Inspection: abdomen appears normal, Palpation: abdomen is soft and non-tender, in all quadrants. 20:00 Back: pain, that is mild, of the right low back and right buttock, ROM is normal. 20:00 Musculoskeletal/extremity: Extremities: grossly normal except: noted in the right leg: pain and tenderness to posterior right leg. 20:00 Neuro: Motor: moves all fours, strength is normal, Sensation: no obvious gross cp deficits, Gait: is steady, Deep tendon reflexes are 2+ (normal) in the right patellar, right Achilles, left patellar and left Achilles. Vital Signs: 19:44 BP 133 / 91; Pulse 84; Resp 18; Temp 99.2; Pulse Ox 100% ; Weight 99.34 kg; Height 5 vc1 ft. 2 in. ; Pain 10/10; 23:26 BP 123 / 60; Pulse 81; Resp 16; Pulse Ox 100% on R/A; cm10 19:44 Body Mass Index 40.06 (99.34 kg, 157.48 cm) vc1 19:44 Pain Scale: Adult vc1 MDM: 19:58 Patient medically screened. cp 23:03 Data reviewed: vital signs, nurses notes, radiologic studies, plain films, ultrasound. cp 23:03 Differential diagnosis: sciatica, dvt, bulging disc. Consideration of cp Admission/Observation Escalation of care including admission/observation considered. I considered the following discharge prescriptions or medication management in the emergency department Medications were administered in the Emergency Department. See MAR. Counseling: I had a detailed discussion with the patient and/or guardian regarding: the historical points, exam findings, and any diagnostic results supporting the discharge/admit diagnosis, to return to the emergency department if symptoms worsen or persist or if there are any questions or concerns that arise at home. Response to treatment: the patient's symptoms have mildly improved after treatment, and as a result, I will discharge patient. 10/01 19:31 Order name: Urine Microscopic Only; Complete Time: 20:28 cp 10/01 20:28 Interpretation: Reviewed. cp 10/01 19:31 Order name: PREGU; Complete Time: 20:19 cp 10/01 20:29 Interpretation: Reviewed. cp 10/01 19:31 Order name: US Extremity Venous Unilateral Ltd; Complete Time: 22:44 cp 10/01 19:31 Order name: XRAY Lumbar Spine (3 Views); Complete Time: 22:44 cp 10/01 22:45 Interpretation: Report reviewed. cp Administered Medications: 21:52 Drug: Ketorolac IM 30 mg Route: IM; Site: left deltoid; cm10 23:25 Follow up: Response: No adverse reaction cm10 23:22 Drug: Lidoderm Topical Patch 5 % (700 mg/patch) 1 patches Route: Topical; Site: cm10 affected area; 23:25 Follow up: Response: No adverse reaction cm10 Disposition Summary: 10/01/22 23:03 Discharge Ordered Location: Home cp Problem: new cp Symptoms: have improved cp Condition: Stable cp Diagnosis - Lumbago with sciatica, right side cp Followup: cp - With: Private Physician - When: 2 - 3 days - Reason: Recheck today's complaints Discharge Instructions: - Discharge Summary Sheet cp - Acute Back Pain, Adult cp - Sciatica cp - Back Exercises cp Forms: - Medication Reconciliation Form cp - Thank You Letter cp - Antibiotic Education cp - Prescription Opioid Use cp - [email or web address] cp Prescriptions: - Cyclobenzaprine 10 mg Oral Tablet - take 1 tablet by ORAL route every 8 hours As needed; 30 tablet; Refills: 0, cp Product Selection Permitted - Diclofenac Sodium 75 mg Oral tablet,delayed release (DR/EC) - take 1 tablet by ORAL route 2 times per day; 20 tablet; Refills: 0, Product cp Selection Permitted - Medrol (Trevor) 4 mg Oral Tablets, Dose Pack - take 1 tablet by ORAL route as directed - follow package instructions; 1 cp packet; Refills: 0, Product Selection Permitted Addendum: 10/04/2022 10:47 Co-signature as Attending Physician, Trace Stringer MD I reviewed the patient's care r n provided by the Advanced Practice Provider and agree with the diagnosis and treatment plan. Signatures: Dispatcher [employer] EDWY Trace Stringer MD MD rn Miguelito Urbina PA PA cp Calcote, Vanessa, RN RN vc1 Shellie aMrcano RN RN cm10 Corrections: (The following items were deleted from the chart) 10/02 23:26 10/01 19:45 Context: gradually, concerned about DVT due to recent surgery last month, cpcp
[2022-10-01] MEDS ORDERED: LIDOCAINE 4% PATCH ONE (23:29)
[2022-10-02 00:41] VITALS: TEMP 99.2; O2SAT 100
[2022-10-02 00:45] VITALS: BP 123/60
== END 2022-10-01 23:26 | disposition home or self-care (01) ==
LOC: ER 18:55
DX: M54.41 Lumbago with sciatica, right side (principal); Z88.8 Allergy status to other drugs, medicaments and biological substances
CPT/HCPCS: 81025; 81015; 72100; 93971; 96372; 99284; J2001